=== PATIENT | male | born 1980 | race Asian ===

== ENCOUNTER 2016-07-17 22:42 | Emergency (ER) | payer SELFPAY ==
[~2016-07-17] VITALS: Ht 170.2 cm; Wt 108.5 kg
[~2016-07-17 22:42] MED LIST: ACID1TAB7 PO; AMLO5TAB4 PO; ASPI325T80 PO; ATEN25TA PO; FURO-93 PO; HYDR-3342 PO; HYDR25TA6 PO; LISI-170 PO; LOSA50TA2 PO; METF500T PO; METF500T3 PO; METO-93 PO; METO-99 PO; POTA20TA14 PO; PRED10TA PO; VANC1VIA3 PO; VANC250C2 PO; hydrochlorothiazide
[2016-07-18] MEDS ORDERED: hydrALAzine 20 MG/ML, 1ML IV ONE
[2016-07-18] MEDS ORDERED: ASPIRIN 81 MG TABLET CHEW PO ONE
[2016-07-18] MEDS ORDERED: SODIUM CHLORIDE FLUSH 10ML SYR IVF ONE
[2016-07-18] MEDS ORDERED: ASPIRIN 81 MG TABLET CHEW ONE (00:09)
[2016-07-18] MEDS ORDERED: hydrALAzine 20 MG/ML, 1ML ONE (00:09)
[2016-07-18] MEDS ORDERED: LABETALOL 20 MG/4 ML ONE (00:21)
[2016-07-18] MEDS ORDERED: DIPHENHYDRAMINE 50 MG/ML, 1ML ONE (00:21)
[2016-07-18] MEDS ORDERED: DIPHENHYDRAMINE 50 MG/ML, 1ML IVPush ONE (00:30)
[2016-07-18] MEDS ORDERED: LABETALOL 5MG/ML, 20ML IVPush ONE (00:30)
[2016-07-18 00:36] LABS: ASPARTATE AMINO TRANSFERASE 25 U/L (15-37); BLOOD UREA NITROGEN 20 mg/dL (7-18)
[2016-07-18 00:50] LABS: PATH.CAST-FLAG NOT PRESENT; SPERM-FLAG NOT PRESENT; SRC-FLAG NOT PRESENT; XTAL-FLAG NOT PRESENT; YLC-FLAG NOT PRESENT
[2016-07-18 02:49] VITALS: BP 149/102
== END 2016-07-18 02:50 | disposition home or self-care (01) ==
LOC: EDSEX 22:42 → ED 07-18 00:09
DX: J15.9 Unspecified bacterial pneumonia (principal); I10 Essential (primary) hypertension; E11.9 Type 2 diabetes mellitus without complications; E66.9 Obesity, unspecified; E78.5 Hyperlipidemia, unspecified; F17.210 Nicotine dependence, cigarettes, uncomplicated; Z91.19 Patient's noncompliance with other medical treatment and regimen
CPT/HCPCS: 36415; 71010; 80053; 81001; 83880; 84484; 85025; 85610; 85730; 93005; 96374; 96375; 99285; J1200

== ENCOUNTER 2016-12-20 02:42 | Emergency (ER) | payer MEDICAID, MEDICARE ==
[~2016-12-20] VITALS: Ht 170.2 cm; Wt 125.1 kg
[2016-12-20] MEDS ORDERED: NITROGLYCERIN OINT 2%, 1GM TP ONE ×2 (03:23→03:30)
[2016-12-20 03:33] VITALS: BP 166/115
[2016-12-20 03:38] LABS: ASPARTATE AMINO TRANSFERASE 20 U/L (15-37); BLOOD UREA NITROGEN 14 mg/dL (7-18)
[2016-12-20 03:45] LABS: HEMATOCRIT 48.4 % (34.6-47.8); HEMOGLOBIN 15.4 g/dL (11.7-16.4); WHITE BLOOD COUNT 8.5 x10^3/uL (3.4-10)
[2016-12-20 03:50] LABS: DIFF TOTAL CELLS COUNTED 100 CELL DIFF
[2016-12-20 03:59] LABS: ANISOCYTOSIS 1+; POLYCHROMASIA 1+; VERIFY COUNTS? YES
[2016-12-20 04:00] LABS: OVALOCYTES 1+
== END 2016-12-20 05:03 | disposition home or self-care (01) ==
LOC: ED 04:50
DX: R55 Syncope and collapse (principal); E11.65 Type 2 diabetes mellitus with hyperglycemia; I10 Essential (primary) hypertension; E78.5 Hyperlipidemia, unspecified; J44.9 Chronic obstructive pulmonary disease, unspecified; G51.0 Bell's palsy; Z88.0 Allergy status to penicillin; Z87.891 Personal history of nicotine dependence; Z90.49 Acquired absence of other specified parts of digestive tract; Z86.73 Personal history of transient ischemic attack (TIA), and cerebral infarction without residual deficits
CPT/HCPCS: 36415; 71010; 80053; 81001; 83690; 85025; 87086; 93005; 99285

== ENCOUNTER 2016-12-20 06:56 | Emergency (ER) | payer MEDICAID ==
[~2016-12-20] VITALS: Ht 167.6 cm; Wt 124.4 kg
[2016-12-20 06:58] VITALS: BP 186/126
== END 2016-12-20 08:05 | disposition home or self-care (01) ==
LOC: ED 08:00
DX: R55 Syncope and collapse (principal); I10 Essential (primary) hypertension; E11.9 Type 2 diabetes mellitus without complications; E78.5 Hyperlipidemia, unspecified; J44.9 Chronic obstructive pulmonary disease, unspecified; G51.0 Bell's palsy; Z90.49 Acquired absence of other specified parts of digestive tract
CPT/HCPCS: 99281

== ENCOUNTER 2017-03-03 22:46 | Emergency (ER) | payer MEDICAID, MEDICARE ==
[~2017-03-03] VITALS: Ht 157.5 cm; Wt 110.0 kg
[2017-03-04] MEDS ORDERED: ASPIRIN 81 MG TABLET CHEW PO ONE
[2017-03-04] MEDS ORDERED: SODIUM CHLORIDE 0.9% 1,000ML IVBOLUS ONE
[2017-03-04] MEDS ORDERED: SODIUM CHLORIDE FLUSH 10ML SYR IVF ONE
[2017-03-04] MEDS ORDERED: ONDANSETRON 2MG/ML, 2ML IVPush ONE
[2017-03-04] MEDS ORDERED: hydrALAzine 20 MG/ML, 1ML IV ONE
[2017-03-04 01:13] LABS: RAPID INFLUENZA A Negative (Negative); RAPID INFLUENZA B Negative (Negative)
[2017-03-04] MEDS ORDERED: ONDANSETRON 2MG/ML, 2ML ONE (01:17)
[2017-03-04] MEDS ORDERED: ASPIRIN 81 MG TABLET CHEW ONE (01:18)
[2017-03-04 01:24] LABS: HEMOGLOBIN 14.8 g/dL (11.7-16.4); WHITE BLOOD COUNT 10.2 x10^3/uL (3.4-10)
[2017-03-04 01:33] LABS: BLOOD UREA NITROGEN 24 mg/dL (7-18)
[2017-03-04 01:35] LABS: ASPARTATE AMINO TRANSFERASE 27 U/L (15-37)
[2017-03-04 01:39] LABS: IS PT STATUS REG ER OR PRE ER? YES
[2017-03-04 02:27] VITALS: BP 142/86
== END 2017-03-04 02:32 | disposition home or self-care (01) ==
LOC: ED 23:56
DX: R55 Syncope and collapse (principal); I10 Essential (primary) hypertension; R11.0 Nausea; E78.5 Hyperlipidemia, unspecified; I50.9 Heart failure, unspecified; E11.9 Type 2 diabetes mellitus without complications; J44.9 Chronic obstructive pulmonary disease, unspecified; E66.9 Obesity, unspecified; Z79.82 Long term (current) use of aspirin; Z90.49 Acquired absence of other specified parts of digestive tract
CPT/HCPCS: 36415; 70450; 71020; 80053; 81001; 83690; 84484; 84703; 85025; 87400; 93005; 96361; 96374; 99285; J2405; J7030; Q0177

== ENCOUNTER 2017-04-03 08:23 | Inpatient (IN) | payer MEDICARE, MEDICAID ==
[~2017-04-03] VITALS: Ht 167.6 cm; Wt 127.3 kg
[2017-04-03] MEDS ORDERED: SODIUM CHLORIDE 0.9% 1,000ML IVBOLUS ONE (09:00)
[2017-04-03 09:25] LABS: MEAN CORPUSCULAR HEMOGLOBIN 22.5 pg (27.0-34.8); MEAN CORPUSCULAR HGB CONC 31.7 g/dL (32.4-35.8); MEAN CORPUSCULAR VOLUME 70.9 fL (80-100); MEAN PLATELET VOLUME 8.8 fL (7.4-10.4); PLATELET COUNT 243 x10^3/uL (130-400); RED BLOOD COUNT 6.87 x10^6/uL (3.82-5.3); RED CELL DISTRIBUTION WIDTH 17.1 % (9.6-15.2)
[2017-04-03 09:29] LABS: ALANINE AMINOTRANSFERASE 41 U/L (12-78); ALBUMIN 3.6 g/dL (3.4-5.0); ANION GAP 8 mmol/L (5-15); CALCIUM 8.4 mg/dL (8.5-10.1); CHLORIDE 104 mmol/L (98-107)
[2017-04-03 09:31] LABS: ALKALINE PHOSPHATASE 53 U/L (45-117); BILIRUBIN,TOTAL 1.2 mg/dL (0.2-1.0); TOTAL PROTEIN 7.6 g/dL (6.4-8.2)
[2017-04-03 09:39] LABS: MICROSCOPIC INDICATED
[2017-04-03 09:46] LABS: CLOSTRIDIUM DIFFICILE ANTIGEN POSITIVE; CLOSTRIDIUM DIFFICILE TOXIN NEGATIVE (Negative)
[2017-04-03 09:47] LABS: CULTURE INDICATED? NO
[2017-04-03 09:58] LABS: BASOPHILS # (AUTO) 0.03 x10^3/uL (0-0.1); BASOPHILS % (AUTO) 1 % (0-1); EOSINOPHILS # (AUTO) 0.29 x10^3/uL (0-0.4); EOSINOPHILS % (AUTO) 5 % (1-7); LYMPHOCYTES # (AUTO) 1.52 x10^3/uL (1-3.4); LYMPHOCYTES % (AUTO) 26 % (22-44); MD MORPH REVIEW ONLY; MONOCYTES # (AUTO) 0.67 x10^3/uL (0.2-0.8); MONOCYTES % (AUTO) 11 % (2-9); NEUTROPHILS # (AUTO) 3.32 x10^3/uL (1.8-6.8); NEUTROPHILS % (AUTO) 57 % (42-75)
[2017-04-03 09:59] LABS: ANISOCYTOSIS 1+; HYPOCHROMIA 1+; MICROCYTOSIS 1+; POLYCHROMASIA 1+
[2017-04-03] MEDS ORDERED: METOPROLOL TARTRATE 50 MG TABLET PO STA (09:59)
[2017-04-03] MEDS ORDERED: DIPHENHYDRAMINE 25 MG CAPSULE PO ONE (10:00)
[2017-04-03] MEDS ORDERED: ONDANSETRON 2MG/ML, 2ML ONE (10:00)
[2017-04-03] MEDS ORDERED: ONDANSETRON 2MG/ML, 2ML IVPush ONE (10:00)
[2017-04-03] MEDS ORDERED: LISINOPRIL 20 MG TABLET PO ONE (10:00)
[2017-04-03] MEDS ORDERED: DIPHENHYDRAMINE 25 MG CAPSULE ONE (10:01)
[2017-04-03 10:02] LABS: <PLATELET ESTIMATE> ADEQUATE; LARGE PLATELETS 1+; OVALOCYTES 1+; TARGET CELLS 1+; TEAR DROPS 1+
[2017-04-03] MEDS ORDERED: METOPROLOL TARTRATE 50 MG TABLET ONE (10:02)
[2017-04-03] MEDS ORDERED: LISINOPRIL 20 MG TABLET ONE (10:03)
[2017-04-03 10:05] LABS: BASOPHILLIC STIPPLING 1+
[2017-04-03] MEDS ORDERED: hydrALAzine 20 MG/ML, 1ML IV ONE (11:00)
[2017-04-03] MEDS ORDERED: hydrALAzine 20 MG/ML, 1ML ONE (11:16)
[2017-04-03 11:29] LABS: TROPONIN I < 0.015 ng/mL (0.000-0.045)
[2017-04-03] MEDS ORDERED: LABETALOL 5MG/ML, 20ML IVPush ONE (12:00)
[2017-04-03] MEDS ORDERED: ACETAMINOPHEN 325 MG TABLET PO PRN (13:30)
[2017-04-03] MEDS ORDERED: POLYETHYLENE GLYCOL 17 GM PACKET PO PRN (13:30)
[2017-04-03] MEDS ORDERED: DOCUSATE 100 MG CAPSULE PO PRN (13:30)
[2017-04-03] MEDS ORDERED: hydrALAzine 20 MG/ML, 1ML IVPush PRN (13:30)
[2017-04-03] MEDS ORDERED: ENALAPRILAT 1.25 MG/ML, 2ML IVPush PRN (13:30)
[2017-04-03 13:58] LABS: FREE T4 (FREE THYROXINE) 1.03 ng/dL (0.76-1.46); THYROID STIMULATING HORMONE 1.21 mIU/L (0.358-3.740)
[2017-04-03 14:04] LABS: HEMOGLOBIN A1C 7.2 % (4.2-6.3)
[2017-04-03 14:47] VITALS: BP 145/101
[2017-04-03] MEDS ORDERED: DIPHENHYDRAMINE 25 MG CAPSULE PO PRN (15:00)
[2017-04-03] MEDS: HEPARIN 5,000 UNITS/ML, 1ML SQ SCH ×2 (15:27→22:03)
[2017-04-03] MEDS: LISINOPRIL 20 MG TABLET PO SCH (15:27)
[2017-04-03] MEDS: METOPROLOL TARTRATE 100 MG TABLET PO SCH ×2 (15:27→21:59)
[2017-04-03] MEDS: OXYcodone IR 5MG TABLET PO PRN ×2 (15:28→22:03)
[2017-04-03] MEDS ORDERED: INSULIN ASPART 100 UNITS/ML, PEN SQ-INSULIN SCH (16:00)
[2017-04-03] MEDS: INSULIN LISPRO 100 UNITS/ML, PEN SQ-INSULIN SCH ×2 (16:35→21:00)
[2017-04-03 18:15] LABS: OCCULT BLOOD NEGATIVE (NEGATIVE)
[2017-04-03 18:56] LABS: CRYPTOSPORIDIUM ANTIGEN Negative (Negative)
[2017-04-03 19:23] VITALS: BP 133/94
[2017-04-03] MEDS ORDERED: PNEUMOCOCCAL 23 VACCINE IM-VACC ONE (21:30)
[2017-04-03] MEDS ORDERED: FLU VACC QS2017-18 (36MOS+) UP/PF 0.5 ML IM-VACC ONE (21:30)
[2017-04-03] MEDS: DIPHENHYDRAMINE 12.5MG/5ML, 10ML UDC PO PRN (21:59)
[2017-04-03] MEDS: ONDANSETRON 2MG/ML, 2ML IVPush PRN (22:01)
[2017-04-04 00:27] VITALS: BP 137/96
[2017-04-04] MEDS: OXYcodone IR 5MG TABLET PO PRN ×5 (02:35→18:12)
[2017-04-04] MEDS: HEPARIN 5,000 UNITS/ML, 1ML SQ SCH ×3 (06:00→21:07)
[2017-04-04 06:10] LABS: BASOPHILS % (AUTO) 1 % (0-1); EOSINOPHILS # (AUTO) 0.41 x10^3/uL (0-0.4); EOSINOPHILS % (AUTO) 4 % (1-7); LYMPHOCYTES # (AUTO) 2.63 x10^3/uL (1-3.4); LYMPHOCYTES % (AUTO) 26 % (22-44); MD NO; MEAN CORPUSCULAR HEMOGLOBIN 22.5 pg (27.0-34.8); MEAN CORPUSCULAR HGB CONC 31.5 g/dL (32.4-35.8); MEAN CORPUSCULAR VOLUME 71.4 fL (80-100); MEAN PLATELET VOLUME 8.5 fL (7.4-10.4); MONOCYTES # (AUTO) 1.23 x10^3/uL (0.2-0.8); MONOCYTES % (AUTO) 12 % (2-9); NEUTROPHILS # (AUTO) 5.78 x10^3/uL (1.8-6.8); NEUTROPHILS % (AUTO) 57 % (42-75); PLATELET COUNT 243 x10^3/uL (130-400); RED BLOOD COUNT 6.39 x10^6/uL (3.82-5.3)
[2017-04-04 06:18] LABS: ALANINE AMINOTRANSFERASE 57 U/L (12-78); ALBUMIN 3.3 g/dL (3.4-5.0); ANION GAP 5 mmol/L (5-15); CALCIUM 8.8 mg/dL (8.5-10.1); CHLORIDE 105 mmol/L (98-107); CREATININE 1.03 mg/dL (0.55-1.02)
[2017-04-04 06:21] LABS: ALKALINE PHOSPHATASE 51 U/L (45-117); BILIRUBIN,TOTAL 1.1 mg/dL (0.2-1.0); CHOL/HDL RATIO 3.4; CHOLESTEROL, TOTAL 148 mg/dL (140-239); HDL CHOL % 29 % (28-40); HDL CHOLESTEROL (DIRECT) 43 mg/dL (40-60); LDL CHOLESTEROL,CALCULATED 61 mg/dL (54-169); LDL/HDL RATIO 1.4 (0.5-3.0); TOTAL PROTEIN 7.2 g/dL (6.4-8.2); TRIGLYCERIDES 220 mg/dL (50-200); VLDL CHOLESTEROL 44 mg/dL (0-25)
[2017-04-04] MEDS: DIPHENHYDRAMINE 12.5MG/5ML, 10ML UDC PO PRN ×3 (06:24→20:24)
[2017-04-04] MEDS: INSULIN LISPRO 100 UNITS/ML, PEN SQ-INSULIN SCH ×4 (06:39→20:25)
[2017-04-04 06:45] VITALS: BP 135/106
[2017-04-04] MEDS ORDERED: PROMETHAZINE 25 MG/ML, 1ML IM PRN (08:00)
[2017-04-04 08:59] VITALS: BP 118/82
[2017-04-04] MEDS: METOPROLOL TARTRATE 100 MG TABLET PO SCH ×2 (09:00→20:25)
[2017-04-04] MEDS: LISINOPRIL 20 MG TABLET PO SCH (09:00)
[2017-04-04] MEDS: morphine SULFATE 10 MG/ML, 1ML IVPush PRN ×2 (11:40→20:25)
[2017-04-04 12:15] VITALS: BP 110/77
[2017-04-04] MEDS ORDERED: ERGOCALCIFEROL 50,000 UNIT CAPSULE PO SCH (16:30)
[2017-04-04] MEDS ORDERED: MAGNESIUM SULFATE PMX 2GM/50ML 50 ML IV ONE (16:30)
[2017-04-04] MEDS: metroNIDAZOLE 500 MG TABLET PO SCH (16:38)
[2017-04-04 20:10] VITALS: BP 138/85
[2017-04-04] MEDS ORDERED: MORPHINE SULFATE 4 MG/ML, 1ML ONE (20:22)
[2017-04-04] MEDS: ONDANSETRON 2MG/ML, 2ML IVPush PRN (22:17)
[2017-04-05] MEDS: OXYcodone IR 5MG TABLET PO PRN ×3 (00:01→10:55)
[2017-04-05] MEDS: metroNIDAZOLE 500 MG TABLET PO SCH ×2 (00:02→08:32)
[2017-04-05 03:32] VITALS: BP 115/80
[2017-04-05 05:44] LABS: CHLORIDE 104 mmol/L (98-107)
[2017-04-05 05:49] LABS: ANION GAP 7 mmol/L (5-15); CALCIUM 8.7 mg/dL (8.5-10.1); CREATININE 1.41 mg/dL (0.55-1.02)
[2017-04-05] MEDS: HEPARIN 5,000 UNITS/ML, 1ML SQ SCH ×2 (06:00→13:49)
[2017-04-05 06:23] LABS: MEAN CORPUSCULAR HEMOGLOBIN 22.9 pg (27.0-34.8); MEAN CORPUSCULAR HGB CONC 31.6 g/dL (32.4-35.8); MEAN CORPUSCULAR VOLUME 72.5 fL (80-100); MEAN PLATELET VOLUME 8.7 fL (7.4-10.4); PLATELET COUNT 243 x10^3/uL (130-400); RED BLOOD COUNT 6.82 x10^6/uL (3.82-5.3); RED CELL DISTRIBUTION WIDTH 17.2 % (9.6-15.2)
[2017-04-05] MEDS: INSULIN LISPRO 100 UNITS/ML, PEN SQ-INSULIN SCH ×2 (06:34→11:02)
[2017-04-05 06:38] LABS: MD YES
[2017-04-05] MEDS: DIPHENHYDRAMINE 12.5MG/5ML, 10ML UDC PO PRN (06:39)
[2017-04-05 06:40] LABS: ANISOCYTOSIS 1+; BAND#(MANUAL) 0.26 x10^3/uL; BANDS%(MANUAL) 2 % (0-7); EOS#(MANUAL) 0.13 x10^3/uL (0.0-0.4); EOS% (MANUAL) 1 % (1-7); HYPOCHROMIA 1+; LYMPH#(MANUAL) 2.71 x10^3/uL (1-3.4); LYMPHS% (MANUAL) 21 % (22-44); MICROCYTOSIS 1+; MONOS#(MANUAL) 0.77 x10^3/uL (0.3-2.7); MONOS% (MANUAL) 6 % (2-9); NRBC % (MANUAL) 7 % (0-1); POLYCHROMASIA 1+; SEG#(MANUAL) 9.03 x10^3/uL (1.8-6.8); SEGS% (MANUAL) 70 % (42-75); TARGET CELLS 1+
[2017-04-05 06:41] LABS: <PLATELET ESTIMATE> ADEQUATE; LARGE PLATELETS 1+
[2017-04-05 07:57] VITALS: BP 135/90
[2017-04-05] MEDS: LISINOPRIL 20 MG TABLET PO SCH (08:32)
[2017-04-05] MEDS: METOPROLOL TARTRATE 100 MG TABLET PO SCH (08:32)
[2017-04-05] MEDS: ONDANSETRON 2MG/ML, 2ML IVPush PRN (12:51)
[2017-04-05] MEDS ORDERED: METR500T PO (13:11)
[2017-04-05] MEDS ORDERED: SPIR25TA PO (13:11)
[2017-04-05] MEDS ORDERED: ERGO500017 PO (13:11)
[2017-04-05] MEDS ORDERED: METF500T PO (13:11)
[2017-04-05] MEDS ORDERED: METO-99 PO (13:11)
[2017-04-05 13:26] VITALS: BP 113/80
== END 2017-04-05 15:34 | disposition home or self-care (01) | DRG 372 ==
LOC: ED 09:08 → EDIP 13:29 → 4NOR 14:34
PROVIDERS: ADMIT Internal Medicine; ATTEND Internal Medicine
DX: A04.72 Enterocolitis due to Clostridium difficile, not specified as recurrent (principal); Z68.42 Body mass index [BMI] 45.0-49.9, adult; I11.0 Hypertensive heart disease with heart failure; E11.65 Type 2 diabetes mellitus with hyperglycemia; I50.9 Heart failure, unspecified; I16.9 Hypertensive crisis, unspecified; E55.9 Vitamin D deficiency, unspecified; Z23 Encounter for immunization; E66.01 Morbid (severe) obesity due to excess calories; E78.5 Hyperlipidemia, unspecified; F17.210 Nicotine dependence, cigarettes, uncomplicated; F41.1 Generalized anxiety disorder; J44.9 Chronic obstructive pulmonary disease, unspecified; N28.9 Disorder of kidney and ureter, unspecified; Z82.3 Family history of stroke; Z83.3 Family history of diabetes mellitus; Z86.73 Personal history of transient ischemic attack (TIA), and cerebral infarction without residual deficits; Z91.14 Patient's other noncompliance with medication regimen; Z91.19 Patient's noncompliance with other medical treatment and regimen; Z90.49 Acquired absence of other specified parts of digestive tract; Z88.6 Allergy status to analgesic agent; Z88.1 Allergy status to other antibiotic agents; Z88.5 Allergy status to narcotic agent; Z88.0 Allergy status to penicillin
CPT/HCPCS: 36415; 71046; 80048; 80053; 80061; 81001; 82272; 82306; 82533; 82607; 82728; 82962; 83036; 83540; 83550; 83735; 83880; 84439; 84443; 84466; 84484; 85025; 85379; 87046; 87324; 87328; 87329; 87493; 87899; 89055; 90686; 90732; 93005; J1644; J2405; J2550; J0360; J1815; J2270; J3475; J7030; Q0163

== ENCOUNTER 2017-05-15 19:29 | Emergency (ER) | payer MEDICARE, MEDICAID ==
[~2017-05-15] VITALS: Ht 167.6 cm; Wt 118.0 kg
[~2017-05-15 19:29] MED LIST changes: +ERGO500017 PO; +METR500T PO; +SPIR25TA PO
[2017-05-15 19:31] VITALS: BP 219/138
[2017-05-15] MEDS ORDERED: PROMETHAZINE 25 MG/ML, 1ML ONE (19:50)
[2017-05-15 19:51] LABS: BASOPHILS # (AUTO) 0.03 x10^3/uL (0-0.1); BASOPHILS % (AUTO) 0 % (0-1); EOSINOPHILS # (AUTO) 0.33 x10^3/uL (0-0.4); EOSINOPHILS % (AUTO) 4 % (1-7); LYMPHOCYTES # (AUTO) 2.08 x10^3/uL (1-3.4); LYMPHOCYTES % (AUTO) 23 % (22-44); MD NO; MEAN CORPUSCULAR HEMOGLOBIN 22.5 pg (27.0-34.8); MEAN CORPUSCULAR HGB CONC 31.9 g/dL (32.4-35.8); MEAN CORPUSCULAR VOLUME 70.5 fL (80-100); MEAN PLATELET VOLUME 9.1 fL (7.4-10.4); MONOCYTES % (AUTO) 9 % (2-9); NEUTROPHILS # (AUTO) 5.89 x10^3/uL (1.8-6.8); NEUTROPHILS % (AUTO) 65 % (42-75); PLATELET COUNT 261 x10^3/uL (130-400); RED BLOOD COUNT 6.72 x10^6/uL (3.82-5.3); RED CELL DISTRIBUTION WIDTH 17.2 % (9.6-15.2)
[2017-05-15] MEDS ORDERED: PLEASE ENTER HEIGHT AND WEIGHT MC SCH (20:00)
[2017-05-15] MEDS ORDERED: PROMETHAZINE 25 MG/ML, 1ML IM ONE (20:00)
[2017-05-15 20:02] LABS: ALBUMIN 3.5 g/dL (3.4-5.0); ANION GAP 7 mmol/L (5-15); CALCIUM 8.9 mg/dL (8.5-10.1); CHLORIDE 105 mmol/L (98-107); CREATININE 0.94 mg/dL (0.55-1.02)
[2017-05-15] MEDS ORDERED: LISINOPRIL 20 MG TABLET PO ONE (20:30)
[2017-05-15] MEDS ORDERED: LISINOPRIL 20 MG TABLET ONE (21:14)
== END 2017-05-15 22:05 | disposition home or self-care (01) ==
LOC: ED 21:59
DX: R11.2 Nausea with vomiting, unspecified (principal); I10 Essential (primary) hypertension; J44.9 Chronic obstructive pulmonary disease, unspecified; I50.9 Heart failure, unspecified; Z86.73 Personal history of transient ischemic attack (TIA), and cerebral infarction without residual deficits; E11.9 Type 2 diabetes mellitus without complications; Z90.49 Acquired absence of other specified parts of digestive tract
CPT/HCPCS: 36415; 80048; 82040; 85025; 96372; 99284; J2550

== ENCOUNTER 2017-07-05 14:41 | Inpatient (IN) | payer MEDICARE, MEDICAID ==
[~2017-07-05] VITALS: Ht 167.6 cm; Wt 138.5 kg
[2017-07-05 15:27] LABS: BASOPHILS # (AUTO) 0.03 x10^3/uL (0-0.1); BASOPHILS % (AUTO) 0 % (0-1); EOSINOPHILS # (AUTO) 0.26 x10^3/uL (0-0.4); EOSINOPHILS % (AUTO) 3 % (1-7); LYMPHOCYTES # (AUTO) 1.85 x10^3/uL (1-3.4); LYMPHOCYTES % (AUTO) 21 % (22-44); MD NO; MEAN CORPUSCULAR HGB CONC 31.4 g/dL (32.4-35.8); MEAN PLATELET VOLUME 8.6 fL (7.4-10.4); MONOCYTES # (AUTO) 0.67 x10^3/uL (0.2-0.8); MONOCYTES % (AUTO) 8 % (2-9); NEUTROPHILS # (AUTO) 6.13 x10^3/uL (1.8-6.8); NEUTROPHILS % (AUTO) 69 % (42-75); PLATELET COUNT 274 x10^3/uL (130-400); RED BLOOD COUNT 7.67 x10^6/uL (3.82-5.3)
[2017-07-05] MEDS ORDERED: METOPROLOL 1 MG/ML, 5ML ONE ×3 (15:28→17:14)
[2017-07-05] MEDS ORDERED: PROMETHAZINE 25 MG/ML, 1ML ONE (15:28)
[2017-07-05 15:30] LABS: INTERNATIONAL NORMALIZED RATIO 1.03 (0.93-1.1); PROTHROMBIN TIME 10.6 Seconds (9.6-11.5)
[2017-07-05] MEDS ORDERED: PROMETHAZINE 25 MG/ML, 1ML IM ONE (15:30)
[2017-07-05] MEDS ORDERED: METOPROLOL 1 MG/ML, 5ML IVPush ONE ×3 (15:30→17:30)
[2017-07-05] MEDS ORDERED: OMNIPAQUE 350 MG/ML, 100ML BOTTLE ONE (16:43)
[2017-07-05] MEDS ORDERED: DIPHENHYDRAMINE 50 MG/ML, 1ML IVPush ONE (17:00)
[2017-07-05] MEDS ORDERED: DIPHENHYDRAMINE 50 MG/ML, 1ML ONE (17:11)
[2017-07-05] MEDS ORDERED: SODIUM CHLORIDE FLUSH 10ML SYR IVF PRN (17:30)
[2017-07-05 18:39] VITALS: BP 165/128
[2017-07-05] MEDS ORDERED: ENOXAPARIN 40 MG/0.4 ML SQ SCH (19:00)
[2017-07-05] MEDS ORDERED: DOCUSATE 100 MG CAPSULE PO PRN (19:00)
[2017-07-05 20:03] VITALS: BP 165/120
[2017-07-05] MEDS: LABETALOL 5MG/ML, 20ML IVPush PRN (20:36)
[2017-07-05 21:48] LABS: CLOSTRIDIUM DIFFICILE ANTIGEN NEGATIVE; CLOSTRIDIUM DIFFICILE TOXIN NEGATIVE (Negative)
[2017-07-05] MEDS: TEMAZEPAM 15 MG CAPSULE PO PRN (21:56)
[2017-07-05] MEDS: METOPROLOL TARTRATE 50 MG TABLET PO SCH (21:56)
[2017-07-06 02:04] VITALS: BP 147/103
[2017-07-06] MEDS: LABETALOL 5MG/ML, 20ML IVPush PRN (02:17)
[2017-07-06] MEDS: DIPHENHYDRAMINE 50 MG CAPSULE PO PRN ×2 (06:22→17:11)
[2017-07-06] MEDS: ACETAMINOPHEN 325 MG TABLET PO PRN ×2 (06:22→17:11)
[2017-07-06] MEDS: INSULIN LISPRO 100 UNITS/ML, PEN SQ-INSULIN SCH ×4 (07:00→20:28)
[2017-07-06 07:38] VITALS: BP 141/103
[2017-07-06] MEDS: HEPARIN 5,000 UNITS/ML, 1ML SQ SCH ×3 (08:30→20:28)
[2017-07-06] MEDS: SPIRONOLACTONE 25 MG TABLET PO SCH (08:54)
[2017-07-06] MEDS: ISOSORBIDE DINITRATE 10 MG TABLET PO SCH ×3 (08:54→20:33)
[2017-07-06] MEDS: METOPROLOL TARTRATE 50 MG TABLET PO SCH ×2 (08:54→20:33)
[2017-07-06 14:20] VITALS: BP 139/95
[2017-07-06] MEDS: LACTOBACILLUS CHEW TABLET PO SCH ×2 (16:52→20:33)
[2017-07-06 19:25] VITALS: BP 140/97
[2017-07-06 20:05] LABS: MICROSCOPIC INDICATED
[2017-07-06 20:16] LABS: CULTURE INDICATED? NO
[2017-07-06] MEDS: TEMAZEPAM 15 MG CAPSULE PO PRN (20:33)
[2017-07-07] MEDS: HEPARIN 5,000 UNITS/ML, 1ML SQ SCH ×3 (01:43→21:00)
[2017-07-07 02:14] VITALS: BP 135/85
[2017-07-07] MEDS: INSULIN LISPRO 100 UNITS/ML, PEN SQ-INSULIN SCH ×4 (07:00→21:00)
[2017-07-07 08:08] VITALS: BP 139/85
[2017-07-07] MEDS: LACTOBACILLUS CHEW TABLET PO SCH ×3 (09:00→22:38)
[2017-07-07] MEDS: METOPROLOL TARTRATE 50 MG TABLET PO SCH ×2 (09:01→22:37)
[2017-07-07] MEDS: CLOPIDOGREL 75 MG TABLET PO SCH (09:01)
[2017-07-07] MEDS: SPIRONOLACTONE 25 MG TABLET PO SCH (09:01)
[2017-07-07] MEDS: ISOSORBIDE DINITRATE 10 MG TABLET PO SCH ×3 (09:01→22:36)
[2017-07-07] MEDS: ACETAMINOPHEN 325 MG TABLET PO PRN (12:52)
[2017-07-07 15:13] VITALS: BP 145/89
[2017-07-07 20:03] VITALS: BP 148/98
[2017-07-07] MEDS: TEMAZEPAM 15 MG CAPSULE PO PRN (22:37)
[2017-07-08] MEDS: TEMAZEPAM 15 MG CAPSULE PO PRN (00:28)
[2017-07-08 03:48] VITALS: BP 146/100
[2017-07-08] MEDS: HEPARIN 5,000 UNITS/ML, 1ML SQ SCH ×2 (05:00→13:00)
[2017-07-08 07:10] VITALS: BP 138/96
[2017-07-08] MEDS: CLOPIDOGREL 75 MG TABLET PO SCH (08:22)
[2017-07-08] MEDS: ISOSORBIDE DINITRATE 10 MG TABLET PO SCH (08:23)
[2017-07-08] MEDS: SPIRONOLACTONE 25 MG TABLET PO SCH (08:23)
[2017-07-08] MEDS: LACTOBACILLUS CHEW TABLET PO SCH (08:23)
[2017-07-08] MEDS: INSULIN LISPRO 100 UNITS/ML, PEN SQ-INSULIN SCH ×2 (08:29→11:00)
[2017-07-08] MEDS: ACETAMINOPHEN 325 MG TABLET PO PRN (09:39)
[2017-07-08 10:15] VITALS: BP 167/117
[2017-07-08] MEDS ORDERED: ONDANSETRON ODT 4 MG PO PRN (10:30)
[2017-07-08] MEDS ORDERED: ONDANSETRON 2MG/ML, 2ML IVPush PRN (10:30)
[2017-07-08] MEDS: LABETALOL 5MG/ML, 20ML IVPush PRN (10:32)
[2017-07-08] MEDS ORDERED: INSU100I11 SQ-INSULIN (11:16)
[2017-07-08] MEDS ORDERED: ACID1TAB7 PO (11:16)
[2017-07-08] MEDS ORDERED: ISOS10TA2 PO (11:16)
[2017-07-08] MEDS ORDERED: CARV12.543 PO (11:16)
[2017-07-08] MEDS ORDERED: HYDR-3342 PO (11:16)
[2017-07-08] MEDS ORDERED: CARVEDILOL 12.5 MG TABLET PO SCH (18:00)
== END 2017-07-08 13:30 | DRG 92 ==
LOC: ED 15:54 → EDIP 17:12 → 4WST 18:24
PROVIDERS: ADMIT Emergency Medicine; ATTEND Emergency Medicine
DX: R27.0 Ataxia, unspecified (principal); I16.9 Hypertensive crisis, unspecified; E87.2 Acidosis; I11.0 Hypertensive heart disease with heart failure; E66.01 Morbid (severe) obesity due to excess calories; R13.10 Dysphagia, unspecified; Z68.42 Body mass index [BMI] 45.0-49.9, adult; N04.8 Nephrotic syndrome with other morphologic changes; E11.9 Type 2 diabetes mellitus without complications; F41.1 Generalized anxiety disorder; G47.30 Sleep apnea, unspecified; G51.0 Bell's palsy; J44.9 Chronic obstructive pulmonary disease, unspecified; M79.669 Pain in unspecified lower leg; R00.0 Tachycardia, unspecified; Z79.899 Other long term (current) drug therapy; Z82.3 Family history of stroke; Z82.49 Family history of ischemic heart disease and other diseases of the circulatory system; Z83.3 Family history of diabetes mellitus; Z86.73 Personal history of transient ischemic attack (TIA), and cerebral infarction without residual deficits; Z87.891 Personal history of nicotine dependence; Z91.14 Patient's other noncompliance with medication regimen; Z87.01 Personal history of pneumonia (recurrent); Z88.0 Allergy status to penicillin; Z88.1 Allergy status to other antibiotic agents; Z90.49 Acquired absence of other specified parts of digestive tract
CPT/HCPCS: 36415; 70450; 70496; 70498; 70551; 71045; 80047; 81001; 82962; 83605; 83880; 85025; 85610; 85730; 87324; 89055; 93005; 96372; 96374; 96375; 96376; J2550; Q0162; Q9967; J1200; J1815

== ENCOUNTER 2017-12-16 01:15 | Inpatient (IN) | payer MEDICARE, MEDICAID ==
[~2017-12-16] VITALS: Ht 167.6 cm; Wt 170.2 kg
[~2017-12-16 01:15] MED LIST changes: +CARV12.543 PO; +INSU100I11 SQ-INSULIN; +ISOS10TA2 PO
[2017-12-16] MEDS ORDERED: LISI-170 PO (01:59)
[2017-12-16] MEDS ORDERED: hydrALAzine 20 MG/ML, 1ML IV ONE (02:00)
[2017-12-16] MEDS ORDERED: hydrALAzine 20 MG/ML, 1ML ONE (02:03)
[2017-12-16] MEDS ORDERED: OMNIPAQUE 350 MG/ML, 100ML BOTTLE ONE (02:06)
[2017-12-16] MEDS ORDERED: DIPHENHYDRAMINE 50 MG/ML, 1ML ONE (02:09)
[2017-12-16 02:14] LABS: BASOPHILS # (AUTO) 0.16 x10^3/uL (0-0.1); BASOPHILS % (AUTO) 2 % (0-1); EOSINOPHILS % (AUTO) 3 % (1-7); LYMPHOCYTES # (AUTO) 2.41 x10^3/uL (1-3.4); LYMPHOCYTES % (AUTO) 22 % (22-44); MD NO; MEAN CORPUSCULAR HEMOGLOBIN 22.4 pg (27.0-34.8); MEAN CORPUSCULAR HGB CONC 31.4 g/dL (32.4-35.8); MEAN CORPUSCULAR VOLUME 71.4 fL (80-100); MEAN PLATELET VOLUME 8.8 fL (7.4-10.4); MONOCYTES # (AUTO) 1.18 x10^3/uL (0.2-0.8); MONOCYTES % (AUTO) 11 % (2-9); NEUTROPHILS # (AUTO) 6.77 x10^3/uL (1.8-6.8); NEUTROPHILS % (AUTO) 63 % (42-75); PLATELET COUNT 278 x10^3/uL (130-400); RED BLOOD COUNT 6.41 x10^6/uL (3.82-5.3); RED CELL DISTRIBUTION WIDTH 16.9 % (9.6-15.2)
[2017-12-16 02:21] LABS: INTERNATIONAL NORMALIZED RATIO 1.06 (0.93-1.1); PROTHROMBIN TIME 10.9 Seconds (9.6-11.5)
[2017-12-16 02:25] LABS: TROPONIN I 0.055 ng/mL (0.000-0.045)
[2017-12-16] MEDS ORDERED: METOPROLOL 1 MG/ML, 5ML ONE ×3 (02:36→04:32)
[2017-12-16] MEDS: METOPROLOL 1 MG/ML, 5ML IVPush PRN ×2 (02:37→03:11)
[2017-12-16] MEDS ORDERED: CHOL100011 PO (02:39)
[2017-12-16] MEDS ORDERED: NITROGLYCERIN/D5W PMX 250 ML ONE (03:09)
[2017-12-16] MEDS ORDERED: NITROGLYCERIN SINGLE TAB 0.4 MG SL PRN (03:30)
[2017-12-16] MEDS: NITROGLYCERIN/D5W PMX 250 ML IV PRN ×3 (03:38→05:19)
[2017-12-16 04:53] LABS: MICROSCOPIC AUTO
[2017-12-16 04:56] LABS: CULTURE INDICATED? NO
[2017-12-16] MEDS ORDERED: SODIUM CHLORIDE 0.9% 1,000 ML IV SCH (05:04)
[2017-12-16] MEDS ORDERED: POLYETHYLENE GLYCOL 17 GM PACKET PO PRN (05:30)
[2017-12-16] MEDS ORDERED: morphine SULFATE 10 MG/ML, 1ML IVPush PRN (05:30)
[2017-12-16] MEDS ORDERED: ONDANSETRON 2MG/ML, 2ML IVPush PRN (05:30)
[2017-12-16] MEDS ORDERED: hydrALAzine 20 MG/ML, 1ML IVPush PRN ×2 (05:30→09:00)
[2017-12-16] MEDS ORDERED: ZOLPIDEM 5MG TABLET PO PRN (05:30)
[2017-12-16 06:18] LABS: TROPONIN I 0.052 ng/mL (0.000-0.045)
[2017-12-16] MEDS: ACETAMINOPHEN 325 MG TABLET PO PRN ×2 (06:27→22:30)
[2017-12-16] MEDS ORDERED: ALBUTEROL SULFATE 2.5 MG/3 ML NPPB PRN (07:30)
[2017-12-16] MEDS: INSULIN LISPRO 100 UNITS/ML, PEN SQ-INSULIN SCH ×4 (07:54→22:30)
[2017-12-16] MEDS: CARVEDILOL 6.25 MG TABLET PO SCH ×2 (08:57→18:00)
[2017-12-16] MEDS: CHOLECALCIFEROL 1,000 UNIT TABLET PO SCH (08:57)
[2017-12-16] MEDS: LISINOPRIL 20 MG TABLET PO SCH ×2 (08:57→22:30)
[2017-12-16] MEDS ORDERED: LACTULOSE 10 GM/15 ML UDC PO SCH (09:00)
[2017-12-16] MEDS ORDERED: LISINOPRIL 20 MG TABLET PO SCH (09:00)
[2017-12-16] MEDS ORDERED: ENALAPRILAT 1.25 MG/ML, 2ML IV PRN (09:00)
[2017-12-16 11:38] LABS: TROPONIN I 0.039 ng/mL (0.000-0.045)
[2017-12-16 19:57] VITALS: BP 129/71
[2017-12-17 00:35] VITALS: BP 134/67
[2017-12-17 05:25] LABS: ALBUMIN 2.9 g/dL (3.4-5.0); ANION GAP 10 mmol/L (5-15); CALCIUM 8.6 mg/dL (8.5-10.1); CHLORIDE 107 mmol/L (98-107)
[2017-12-17] MEDS: CARVEDILOL 6.25 MG TABLET PO SCH (05:30)
[2017-12-17] MEDS: ACETAMINOPHEN 325 MG TABLET PO PRN (05:31)
[2017-12-17 05:32] VITALS: BP 137/105
[2017-12-17 05:35] LABS: % IRON SATURATION 20 % (20-55); ALANINE AMINOTRANSFERASE 21 U/L (12-78); ALKALINE PHOSPHATASE 55 U/L (45-117); BILIRUBIN,TOTAL 1.3 mg/dL (0.2-1.0); CREATININE 0.69 mg/dL (0.55-1.02); IRON LEVEL 66 mcg/dL (50-170); TOTAL IRON BINDING CAPACITY 330 mcg/dL (250-450); TOTAL PROTEIN 6.8 g/dL (6.4-8.2)
[2017-12-17 05:40] LABS: MEAN CORPUSCULAR HEMOGLOBIN 22.8 pg (27.0-34.8); MEAN CORPUSCULAR HGB CONC 31.4 g/dL (32.4-35.8); MEAN CORPUSCULAR VOLUME 72.8 fL (80-100); PLATELET COUNT 240 x10^3/uL (130-400); RED BLOOD COUNT 6.25 x10^6/uL (3.82-5.3); RED CELL DISTRIBUTION WIDTH 16.5 % (9.6-15.2)
[2017-12-17 06:29] LABS: BASOPHILS # (AUTO) 0.05 x10^3/uL (0-0.1); BASOPHILS % (AUTO) 1 % (0-1); EOSINOPHILS # (AUTO) 0.28 x10^3/uL (0-0.4); EOSINOPHILS % (AUTO) 4 % (1-7); LYMPHOCYTES # (AUTO) 2.44 x10^3/uL (1-3.4); LYMPHOCYTES % (AUTO) 31 % (22-44); MD SCAN; MONOCYTES # (AUTO) 0.73 x10^3/uL (0.2-0.8); MONOCYTES % (AUTO) 9 % (2-9); NEUTROPHILS # (AUTO) 4.38 x10^3/uL (1.8-6.8); NEUTROPHILS % (AUTO) 56 % (42-75)
[2017-12-17] MEDS: INSULIN LISPRO 100 UNITS/ML, PEN SQ-INSULIN SCH ×2 (07:00→12:35)
[2017-12-17 08:34] VITALS: BP 146/105
[2017-12-17] MEDS: CHOLECALCIFEROL 1,000 UNIT TABLET PO SCH (08:51)
[2017-12-17] MEDS: LISINOPRIL 20 MG TABLET PO SCH (08:54)
[2017-12-17 10:20] VITALS: BP 138/84
[2017-12-17 12:43] VITALS: BP_SYST 144; BP_SYST 146; BP_DIAS 74; BP_DIAS 87
== END 2017-12-17 16:04 | disposition home or self-care (01) | DRG 280 ==
LOC: ED 02:18 → EDIP 04:20 → CCU 06:00 → 4WST 16:22
PROVIDERS: ADMIT Hospitalist; ATTEND Hospitalist
DX: I21.9 Acute myocardial infarction, unspecified (principal); J96.01 Acute respiratory failure with hypoxia; I50.31 Acute diastolic (congestive) heart failure; I16.1 Hypertensive emergency; Z68.41 Body mass index [BMI] 40.0-44.9, adult; E66.2 Morbid (severe) obesity with alveolar hypoventilation; J81.1 Chronic pulmonary edema; I11.0 Hypertensive heart disease with heart failure; E78.5 Hyperlipidemia, unspecified; J44.9 Chronic obstructive pulmonary disease, unspecified; E11.9 Type 2 diabetes mellitus without complications; F17.200 Nicotine dependence, unspecified, uncomplicated; G51.0 Bell's palsy; R47.81 Slurred speech; Z79.4 Long term (current) use of insulin; Z82.49 Family history of ischemic heart disease and other diseases of the circulatory system; Z83.3 Family history of diabetes mellitus; Z84.1 Family history of disorders of kidney and ureter; Z86.14 Personal history of Methicillin resistant Staphylococcus aureus infection; Z86.79 Personal history of other diseases of the circulatory system; Z91.14 Patient's other noncompliance with medication regimen; Z88.6 Allergy status to analgesic agent; Z88.1 Allergy status to other antibiotic agents; Z88.0 Allergy status to penicillin; Z88.8 Allergy status to other drugs, medicaments and biological substances; Z86.73 Personal history of transient ischemic attack (TIA), and cerebral infarction without residual deficits
CPT/HCPCS: 36415; 70450; 70496; 70498; 71045; 80047; 80053; 81001; 82728; 82962; 83540; 83550; 83735; 83880; 84100; 84443; 84484; 85025; 85610; 85730; 87081; 93005; 96374; 96375; 96376; 99285; C8929; G0378; Q9957; Q9967; J0360; J1815; J7030

== ENCOUNTER 2018-02-01 18:28 | Emergency (ER) | payer MEDICARE, MEDICAID ==
[~2018-02-01] VITALS: Ht 167.6 cm; Wt 124.0 kg
[~2018-02-01 18:28] MED LIST changes: +CHOL100011 PO
[2018-02-01] MEDS ORDERED: SODIUM CHLORIDE FLUSH 10ML SYR IVF ONE ×2 (19:00→19:30)
[2018-02-01] MEDS ORDERED: NITROGLYCERIN OINT 2%, 1GM TP ONE ×2 (19:26→19:30)
[2018-02-01 19:29] VITALS: BP 170/98
[2018-02-01 19:29] LABS: MEAN CORPUSCULAR HEMOGLOBIN 22.2 pg (27.0-34.8); MEAN CORPUSCULAR HGB CONC 30.8 g/dL (32.4-35.8); MEAN CORPUSCULAR VOLUME 72.2 fL (80-100); MEAN PLATELET VOLUME 9.1 fL (7.4-10.4); PLATELET COUNT 334 x10^3/uL (130-400); RED BLOOD COUNT 7.57 x10^6/uL (3.82-5.3); RED CELL DISTRIBUTION WIDTH 16.3 % (9.6-15.2)
[2018-02-01 19:35] LABS: INTERNATIONAL NORMALIZED RATIO 1.08 (0.93-1.1); PROTHROMBIN TIME 11.4 Seconds (9.6-11.5)
[2018-02-01 19:37] LABS: ALANINE AMINOTRANSFERASE 29 U/L (12-78); ALBUMIN 3.3 g/dL (3.4-5.0); ANION GAP 7 mmol/L (5-15); CALCIUM 9.6 mg/dL (8.5-10.1); CHLORIDE 107 mmol/L (98-107); CREATININE 1.05 mg/dL (0.55-1.02)
[2018-02-01 19:41] LABS: ALKALINE PHOSPHATASE 63 U/L (45-117); BILIRUBIN,TOTAL 1.3 mg/dL (0.2-1.0); TOTAL PROTEIN 7.8 g/dL (6.4-8.2); TROPONIN I 0.032 ng/mL (0.000-0.045)
[2018-02-01 20:16] LABS: BASOPHILS # (AUTO) 0.04 x10^3/uL (0-0.1); BASOPHILS % (AUTO) 0 % (0-1); EOSINOPHILS # (AUTO) 0.16 x10^3/uL (0-0.4); EOSINOPHILS % (AUTO) 2 % (1-7); LYMPHOCYTES # (AUTO) 1.12 x10^3/uL (1-3.4); LYMPHOCYTES % (AUTO) 13 % (22-44); MD SCAN; MONOCYTES # (AUTO) 0.59 x10^3/uL (0.2-0.8); MONOCYTES % (AUTO) 7 % (2-9); NEUTROPHILS # (AUTO) 6.88 x10^3/uL (1.8-6.8); NEUTROPHILS % (AUTO) 78 % (42-75)
== END 2018-02-01 20:38 | disposition home or self-care (01) ==
LOC: ED 18:37
DX: B02.29 Other postherpetic nervous system involvement (principal); I11.0 Hypertensive heart disease with heart failure; I50.9 Heart failure, unspecified; I25.2 Old myocardial infarction; E78.5 Hyperlipidemia, unspecified; E11.9 Type 2 diabetes mellitus without complications; F41.1 Generalized anxiety disorder; J44.9 Chronic obstructive pulmonary disease, unspecified; Z86.73 Personal history of transient ischemic attack (TIA), and cerebral infarction without residual deficits; Z72.9 Problem related to lifestyle, unspecified; Z87.891 Personal history of nicotine dependence; Z90.49 Acquired absence of other specified parts of digestive tract; Z88.1 Allergy status to other antibiotic agents; Z88.6 Allergy status to analgesic agent; Z88.8 Allergy status to other drugs, medicaments and biological substances; Z88.0 Allergy status to penicillin
CPT/HCPCS: 36415; 70450; 71045; 80053; 83605; 83880; 84145; 84484; 85025; 85610; 85730; 87040; 93005; 99284

== ENCOUNTER 2018-04-22 17:22 | Inpatient (IN) | payer MEDICARE, MEDICAID ==
[~2018-04-22] VITALS: Ht 167.6 cm; Wt 133.2 kg
[2018-04-22] MEDS ORDERED: ONDANSETRON ODT 4 MG PO ONE (18:00)
[2018-04-22] MEDS ORDERED: DIPHENHYDRAMINE 25 MG CAPSULE PO ONE (18:00)
[2018-04-22] MEDS ORDERED: ONDANSETRON ODT 4 MG ONE (18:00)
[2018-04-22] MEDS ORDERED: DIPHENHYDRAMINE 25 MG CAPSULE ONE (18:00)
[2018-04-22 18:22] LABS: MICROSCOPIC AUTO
[2018-04-22 18:25] LABS: CULTURE INDICATED? NO
[2018-04-22 18:29] LABS: BASOPHILS # (AUTO) 0.01 x10^3/uL (0-0.1); BASOPHILS % (AUTO) 0 % (0-1); EOSINOPHILS # (AUTO) 0.24 x10^3/uL (0-0.4); EOSINOPHILS % (AUTO) 3 % (1-7); LYMPHOCYTES # (AUTO) 2.04 x10^3/uL (1-3.4); LYMPHOCYTES % (AUTO) 22 % (22-44); MD NO; MEAN CORPUSCULAR HEMOGLOBIN 22.8 pg (27.0-34.8); MEAN CORPUSCULAR HGB CONC 31.8 g/dL (32.4-35.8); MEAN CORPUSCULAR VOLUME 71.6 fL (80-100); MEAN PLATELET VOLUME 8.8 fL (7.4-10.4); MONOCYTES # (AUTO) 0.64 x10^3/uL (0.2-0.8); MONOCYTES % (AUTO) 7 % (2-9); NEUTROPHILS # (AUTO) 6.31 x10^3/uL (1.8-6.8); NEUTROPHILS % (AUTO) 68 % (42-75); PLATELET COUNT 264 x10^3/uL (130-400); RED BLOOD COUNT 6.87 x10^6/uL (3.82-5.3); RED CELL DISTRIBUTION WIDTH 16.7 % (9.6-15.2)
--- NOTE | 2018-04-22 18:30 | NUR ---
PA AWARE OF PT'S VS. PT IN BED, NAD, NO NEEDS AT THIS TIME.
[2018-04-22 18:40] LABS: ALANINE AMINOTRANSFERASE 22 U/L (12-78); ALBUMIN 3.1 g/dL (3.4-5.0); ANION GAP 8 mmol/L (5-15); CALCIUM 8.6 mg/dL (8.5-10.1); CHLORIDE 108 mmol/L (98-107); CREATININE 0.96 mg/dL (0.55-1.02)
[2018-04-22 18:45] LABS: ALKALINE PHOSPHATASE 57 U/L (45-117); BILIRUBIN,TOTAL 0.9 mg/dL (0.2-1.0); TOTAL PROTEIN 7.3 g/dL (6.4-8.2); TROPONIN I 0.039 ng/mL (0.000-0.045)
--- NOTE | 2018-04-22 19:01 | NUR ---
Bedside report from Keke GRAY. Pt reports still feeling dizzy. BP 170s/140s. Warm blankets provided per pt request. Waiting on results. Pt denies any other needs at this time.
--- NOTE | 2018-04-22 20:00 | NUR ---
Elba QUINN at bedside for re-eval. Pt medicated for hypertension.
[2018-04-22] MEDS ORDERED: LISINOPRIL 20 MG TABLET ONE (20:28)
[2018-04-22] MEDS ORDERED: LISINOPRIL 20 MG TABLET PO ONE (20:30)
--- NOTE | 2018-04-22 20:33 | NUR ---
30 minutes after 10mg hydralazine given BP still 207/144, pt still c/o dizzy/lightheadedness, pt seem unsafe to d/c. Elba QUINN notified, discussed medications, 20mg lisinopril given (this is what patient takes daily). Monitoring for another 30 minutes, will re-evaluate. Pt given snacks per request. Pt verbalized understanding of care.
--- NOTE | 2018-04-22 21:12 | NUR ---
Pt remains hypertensive 40 minutes after lisinopril, bp 200/138. Attached all monitors again, pt had nasal cannula on during earlier assessments and has removed it some time and new pulse ox placed and o2 84-87%, pt reports being an low use intermittent smoker. 2L NC placed, O2 up to 94%. Pt still c/o midsternal CP, facial tingling, dizziness. All VS and symptoms reports to Elba QUINN.
--- NOTE | 2018-04-22 21:25 | NUR ---
need iv for CTA chest.
[2018-04-22] MEDS ORDERED: SODIUM CHLORIDE FLUSH 10ML SYR IVF ONE (21:30)
[2018-04-22] MEDS ORDERED: SODIUM CHLORIDE 0.9% 1,000ML IVBOLUS ONE (21:30)
[2018-04-22 21:45] LABS: RAPID INFLUENZA A Negative (Negative); RAPID INFLUENZA B Negative (Negative)
--- NOTE | 2018-04-22 21:47 | NUR ---
2X ATTMEPT FOR PIV UNSUCCESSFUL, ABIGAIL GRAY AT BEDSIDE.
--- NOTE | 2018-04-22 22:07 | NUR ---
ABIGAIL GRAY ABLE TO PLACE IV, CT NOTIFIED.
--- NOTE | 2018-04-22 22:14 | NUR ---
PT TO CT.
--- NOTE | 2018-04-22 22:28 | NUR ---
PT BACK FROM CT, RESULTS PENDING.
[2018-04-22] MEDS ORDERED: OMNIPAQUE 350 MG/ML, 100ML BOTTLE ONE (22:29)
--- NOTE | 2018-04-22 22:40 | NUR ---
ALL RESULTS BACK, PT UP FOR RE-CHECK
--- NOTE | 2018-04-22 23:21 | NUR ---
REPORT TO FLOOR [facility] [place] REGARDING APPROPRIATE ADMISSION FLOOR, WAITING FOR RETURN CALL.
--- NOTE | 2018-04-22 23:27 | NUR ---
admitting provider at bedside.
--- NOTE | 2018-04-22 23:56 | NUR ---
REPORT TO FLOOR ISAAC FELIX, PT GOING TO [phone]
[2018-04-22] MEDS ORDERED: BUDESONIDE 0.5 MG/2 ML INHA ONE (23:58)
[2018-04-22] MEDS ORDERED: ALBUTEROL SULFATE 2.5 MG/3 ML ONE (23:58)
[2018-04-23] MEDS ORDERED: ONDANSETRON ODT 4 MG PO PRN
[2018-04-23] MEDS ORDERED: DOCUSATE 100 MG CAPSULE PO PRN
[2018-04-23] MEDS ORDERED: ACETAMINOPHEN 325 MG TABLET PO PRN
[2018-04-23] MEDS ORDERED: KETOROLAC 30 MG/1 ML IV PRN
[2018-04-23] MEDS ORDERED: NITROGLYCERIN 0.4 MG BOTTLE (25 TABS) SL PRN
[2018-04-23] MEDS ORDERED: DIPHENHYDRAMINE 50 MG CAPSULE PO PRN
[2018-04-23] MEDS: ALBUTEROL SULFATE 2.5 MG/3 ML NPPB SCH ×4 (00:02→20:39)
--- NOTE | 2018-04-23 00:02 | NUR ---
BREATHING TX IN PROGRESS.
--- NOTE | 2018-04-23 00:12 | NUR ---
PT TRANSFERED TO FLOOR WITH CHART AND ALL BELONGINGS IN STABLE CONDITION.
[2018-04-23] MEDS ORDERED: BUDESONIDE 0.5 MG/2 ML INHA INH ONE ×2 (00:30)
[2018-04-23] MEDS ORDERED: ENOXAPARIN 40 MG/0.4 ML ONE (00:30)
[2018-04-23 00:33] VITALS: BP 162/111
[2018-04-23] MEDS: ENOXAPARIN 40 MG/0.4 ML SQ SCH (00:33)
[2018-04-23 01:21] LABS: TROPONIN I 0.047 ng/mL (0.000-0.045)
[2018-04-23 05:51] LABS: ANION GAP 8 mmol/L (5-15); CALCIUM 8.6 mg/dL (8.5-10.1); CHLORIDE 106 mmol/L (98-107)
[2018-04-23 05:55] LABS: CREATININE 0.89 mg/dL (0.55-1.02); TROPONIN I 0.035 ng/mL (0.000-0.045)
[2018-04-23 05:57] LABS: MEAN CORPUSCULAR HEMOGLOBIN 22.2 pg (27.0-34.8); MEAN CORPUSCULAR HGB CONC 31.1 g/dL (32.4-35.8); MEAN CORPUSCULAR VOLUME 71.6 fL (80-100); MEAN PLATELET VOLUME 8.6 fL (7.4-10.4); PLATELET COUNT 247 x10^3/uL (130-400); RED BLOOD COUNT 6.81 x10^6/uL (3.82-5.3); RED CELL DISTRIBUTION WIDTH 16.6 % (9.6-15.2)
[2018-04-23 06:49] LABS: MD YES
[2018-04-23 06:50] LABS: BAND#(MANUAL) 0.28 x10^3/uL; BANDS%(MANUAL) 3 % (0-7); EOS#(MANUAL) 0.56 x10^3/uL (0.0-0.4); EOS% (MANUAL) 6 % (1-7); LYMPH#(MANUAL) 3.35 x10^3/uL (1-3.4); LYMPHS% (MANUAL) 36 % (22-44); MONOS#(MANUAL) 0.74 x10^3/uL (0.3-2.7); MONOS% (MANUAL) 8 % (2-9); NRBC % (MANUAL) 1 % (0-1); SEG#(MANUAL) 4.37 x10^3/uL (1.8-6.8); SEGS% (MANUAL) 47 % (42-75)
[2018-04-23 06:58] LABS: POLYCHROMASIA 1+
[2018-04-23 07:00] LABS: ANISOCYTOSIS 1+
[2018-04-23 07:01] LABS: <PLATELET ESTIMATE> ADEQUATE; <PLT MORPHOLOGY> NORMAL PLT MORPH; HYPOCHROMIA 1+
[2018-04-23 07:02] LABS: MICROCYTOSIS 2+
[2018-04-23 07:08] VITALS: BP 127/87
[2018-04-23] MEDS: BUDESONIDE 0.5 MG/2 ML INHA INH SCH ×2 (09:00→20:39)
[2018-04-23] MEDS: LIDODERM 5% PATCH TD PRN (09:21)
[2018-04-23] MEDS: LISINOPRIL 20 MG TABLET PO SCH (09:22)
[2018-04-23 09:35] VITALS: BP 138/95
[2018-04-23] MEDS ORDERED: FUROSEMIDE 20 MG/2 ML ONE (12:42)
[2018-04-23] MEDS: POTASSIUM CHLORIDE 20 MEQ TAB.ER.PRT PO SCH (12:50)
[2018-04-23] MEDS ORDERED: LORazepam 2 MG/ML, 1ML IVPush ONE (13:00)
[2018-04-23] MEDS ORDERED: FUROSEMIDE 20 MG/2 ML IV ONE (13:00)
[2018-04-23 13:22] VITALS: BP 140/96
[2018-04-23] MEDS ORDERED: DEXTROSE 4 GM TAB.CHEW PO PRN (13:30)
[2018-04-23] MEDS ORDERED: GLUCAGON 1 MG IM PRN (13:30)
[2018-04-23] MEDS ORDERED: DEXTROSE 50%, 50ML SYRINGE IVPush PRN (13:30)
[2018-04-23] MEDS: FUROSEMIDE 20 MG/2 ML IV SCH (16:09)
[2018-04-23] MEDS: INSULIN LISPRO 100 UNITS/ML, PEN SQ-INSULIN SCH ×2 (17:05→21:00)
[2018-04-23] MEDS: DIPHENHYDRAMINE 50 MG/ML, 1ML IVPush PRN (19:54)
[2018-04-23] MEDS: SODIUM CHLORIDE FLUSH 10ML SYR IVF SCH (21:00)
[2018-04-24] MEDS: ENOXAPARIN 40 MG/0.4 ML SQ SCH ×2 (00:28→23:51)
[2018-04-24 01:12] VITALS: BP 138/85
[2018-04-24] MEDS: ALBUTEROL SULFATE 2.5 MG/3 ML NPPB SCH ×4 (02:33→21:00)
[2018-04-24] MEDS: DIPHENHYDRAMINE 50 MG/ML, 1ML IVPush PRN ×4 (02:43→22:06)
[2018-04-24 06:02] LABS: CHLORIDE 105 mmol/L (98-107)
[2018-04-24 06:07] LABS: ANION GAP 5 mmol/L (5-15); CALCIUM 8.5 mg/dL (8.5-10.1); CREATININE 0.96 mg/dL (0.55-1.02)
[2018-04-24] MEDS: INSULIN LISPRO 100 UNITS/ML, PEN SQ-INSULIN SCH ×4 (07:00→19:58)
[2018-04-24 08:11] VITALS: BP 130/83
[2018-04-24] MEDS: POTASSIUM CHLORIDE 20 MEQ TAB.ER.PRT PO SCH (09:00)
[2018-04-24] MEDS: BUDESONIDE 0.5 MG/2 ML INHA INH SCH ×2 (09:00→21:00)
[2018-04-24] MEDS: LISINOPRIL 20 MG TABLET PO SCH (09:00)
[2018-04-24] MEDS: FUROSEMIDE 20 MG/2 ML IV SCH ×2 (09:05→17:30)
[2018-04-24] MEDS: SODIUM CHLORIDE FLUSH 10ML SYR IVF SCH ×2 (09:06→22:06)
[2018-04-24] MEDS ORDERED: REGADENOSON 0.4 MG/5 ML SYRINGE ONE (10:01)
[2018-04-24 13:20] VITALS: BP 142/102
[2018-04-24] MEDS ORDERED: METOPROLOL TARTRATE 50 MG TABLET ONE (14:46)
[2018-04-24] MEDS: METOPROLOL TARTRATE 50 MG TABLET PO SCH ×2 (14:48→17:29)
[2018-04-24] MEDS ORDERED: METOPROLOL TARTRATE 25 MG TABLET PO SCH (18:00)
[2018-04-24] MEDS ORDERED: hydrALAzine 20 MG/ML, 1ML IV PRN (18:00)
[2018-04-24 19:56] VITALS: BP 149/102
[2018-04-25 01:14] VITALS: BP 138/95
[2018-04-25] MEDS: ALBUTEROL SULFATE 2.5 MG/3 ML NPPB SCH (03:00)
[2018-04-25] MEDS: DIPHENHYDRAMINE 50 MG/ML, 1ML IVPush PRN (04:11)
[2018-04-25] MEDS: METOPROLOL TARTRATE 50 MG TABLET PO SCH ×2 (05:22→17:17)
[2018-04-25] MEDS: INSULIN LISPRO 100 UNITS/ML, PEN SQ-INSULIN SCH ×4 (07:00→19:49)
[2018-04-25 07:30] VITALS: BP 115/90
[2018-04-25] MEDS ORDERED: BUDESONIDE 0.5 MG/2 ML INHA INH PRN (09:30)
[2018-04-25] MEDS ORDERED: ALBUTEROL SULFATE 2.5 MG/3 ML NPPB PRN (09:30)
[2018-04-25] MEDS: LISINOPRIL 10 MG TABLET PO SCH (11:35)
[2018-04-25] MEDS: POTASSIUM CHLORIDE 20 MEQ TAB.ER.PRT PO SCH (11:35)
[2018-04-25] MEDS: SODIUM CHLORIDE FLUSH 10ML SYR IVF SCH ×2 (11:50→20:47)
[2018-04-25 12:37] VITALS: BP 136/92
[2018-04-25] MEDS ORDERED: DIPHENHYDRAMINE 50 MG CAPSULE PO PRN (13:00)
[2018-04-25] MEDS: FUROSEMIDE 40 MG TABLET PO SCH (17:18)
[2018-04-25] MEDS ORDERED: FURO40TA6 PO ×2 (18:00)
[2018-04-25] MEDS ORDERED: POTA20TA6 PO ×2 (18:00)
[2018-04-25] MEDS ORDERED: METO50TA82 PO ×2 (18:00)
[2018-04-25] MEDS ORDERED: LISI-167 PO (18:00)
[2018-04-25] MEDS ORDERED: ASPI-515 PO (18:02)
[2018-04-25] MEDS ORDERED: SIMV40TA PO (18:03)
[2018-04-25 19:18] VITALS: BP 148/76
[2018-04-25] MEDS: ENOXAPARIN 40 MG/0.4 ML SQ SCH (20:47)
[2018-04-26 00:27] VITALS: BP 135/86
[2018-04-26] MEDS: METOPROLOL TARTRATE 50 MG TABLET PO SCH (05:21)
[2018-04-26 05:38] LABS: CHOL/HDL RATIO 4.1; LDL/HDL RATIO 2.3 (0.5-3.0)
[2018-04-26] MEDS: INSULIN LISPRO 100 UNITS/ML, PEN SQ-INSULIN SCH ×4 (07:00→20:58)
[2018-04-26] MEDS: FUROSEMIDE 40 MG TABLET PO SCH (07:30)
[2018-04-26 07:40] VITALS: BP 124/85
[2018-04-26] MEDS: POTASSIUM CHLORIDE 20 MEQ TAB.ER.PRT PO SCH (09:00)
[2018-04-26] MEDS: LISINOPRIL 10 MG TABLET PO SCH (09:00)
[2018-04-26] MEDS: ASPIRIN 81 MG TABLET EC PO SCH (10:00)
[2018-04-26] MEDS: SODIUM CHLORIDE 0.9% 1,000 ML IV SCH (12:59)
[2018-04-26 14:15] VITALS: BP 136/97
[2018-04-26] MEDS ORDERED: LIDOCAINE 1%, 20ML ONE (16:54)
[2018-04-26] MEDS ORDERED: MIDAZOLAM 1 MG/ML, 2ML ONE ×2 (16:54→17:20)
[2018-04-26] MEDS ORDERED: FENTANYL PF 100 MCG/2ML ONE (16:54)
[2018-04-26] MEDS ORDERED: VERAPAMIL 2.5 MG/ML, 2ML ONE (16:54)
[2018-04-26] MEDS ORDERED: HEPARIN 1,000 UNITS/ML, 10ML ONE (17:22)
[2018-04-26] MEDS: DIPHENHYDRAMINE 50 MG/ML, 1ML IVPush PRN (18:09)
[2018-04-26] MEDS: CARVEDILOL 12.5 MG TABLET PO SCH (18:09)
[2018-04-26 18:56] VITALS: BP 136/86
[2018-04-26] MEDS: FUROSEMIDE 40 MG/4 ML IV SCH (19:45)
[2018-04-26] MEDS: ATORVASTATIN 40 MG TABLET PO SCH (20:04)
[2018-04-26] MEDS: LIDODERM 5% PATCH TD PRN (20:06)
[2018-04-26 23:57] VITALS: BP 124/80
[2018-04-27] MEDS: ENOXAPARIN 40 MG/0.4 ML SQ SCH ×2 (00:02→23:11)
[2018-04-27] MEDS: DIPHENHYDRAMINE 50 MG/ML, 1ML IVPush PRN ×3 (00:03→20:21)
[2018-04-27] MEDS: CARVEDILOL 12.5 MG TABLET PO SCH ×2 (05:21→16:40)
[2018-04-27] MEDS: ASPIRIN 81 MG TABLET EC PO SCH (05:21)
[2018-04-27 06:09] LABS: BASOPHILS # (AUTO) 0.01 x10^3/uL (0-0.1); BASOPHILS % (AUTO) 0 % (0-1); EOSINOPHILS # (AUTO) 0.31 x10^3/uL (0-0.4); EOSINOPHILS % (AUTO) 4 % (1-7); LYMPHOCYTES # (AUTO) 2.07 x10^3/uL (1-3.4); LYMPHOCYTES % (AUTO) 24 % (22-44); MD NO; MEAN CORPUSCULAR HEMOGLOBIN 22.5 pg (27.0-34.8); MEAN CORPUSCULAR HGB CONC 31.6 g/dL (32.4-35.8); MEAN CORPUSCULAR VOLUME 71.3 fL (80-100); MEAN PLATELET VOLUME 8.9 fL (7.4-10.4); MONOCYTES # (AUTO) 0.78 x10^3/uL (0.2-0.8); MONOCYTES % (AUTO) 9 % (2-9); NEUTROPHILS # (AUTO) 5.45 x10^3/uL (1.8-6.8); NEUTROPHILS % (AUTO) 63 % (42-75); PLATELET COUNT 262 x10^3/uL (130-400); RED BLOOD COUNT 7.21 x10^6/uL (3.82-5.3); RED CELL DISTRIBUTION WIDTH 16.7 % (9.6-15.2)
[2018-04-27 06:22] LABS: CHLORIDE 99 mmol/L (98-107)
[2018-04-27 06:32] LABS: ANION GAP 9 mmol/L (5-15); CALCIUM 9.3 mg/dL (8.5-10.1); CREATININE 1.03 mg/dL (0.55-1.02); TOTAL IRON BINDING CAPACITY 525 mcg/dL (250-450)
[2018-04-27 06:33] LABS: % IRON SATURATION 18 % (20-55); IRON LEVEL 93 mcg/dL (50-170)
[2018-04-27] MEDS: INSULIN LISPRO 100 UNITS/ML, PEN SQ-INSULIN SCH ×4 (07:00→20:19)
[2018-04-27 07:15] LABS: HEMOGLOBIN A1C 6.6 % (4.2-6.3)
[2018-04-27 07:59] VITALS: BP 118/72
[2018-04-27] MEDS: LISINOPRIL 20 MG TABLET PO SCH (08:01)
[2018-04-27] MEDS: POTASSIUM CHLORIDE 20 MEQ TAB.ER.PRT PO SCH (08:01)
[2018-04-27] MEDS: FUROSEMIDE 40 MG/4 ML IV SCH ×2 (08:01→16:40)
[2018-04-27] MEDS: SPIRONOLACTONE 25 MG TABLET PO SCH (08:01)
[2018-04-27] MEDS: SODIUM CHLORIDE 0.9% 1,000 ML IV SCH (08:02)
[2018-04-27 16:42] VITALS: BP 116/74
[2018-04-27 19:29] VITALS: BP 119/77
[2018-04-27] MEDS: ATORVASTATIN 40 MG TABLET PO SCH (20:13)
[2018-04-28 04:47] VITALS: BP 101/61
[2018-04-28] MEDS: ASPIRIN 81 MG TABLET EC PO SCH (05:41)
[2018-04-28] MEDS: CARVEDILOL 12.5 MG TABLET PO SCH (05:41)
[2018-04-28] MEDS: SODIUM CHLORIDE 0.9% 1,000 ML IV SCH (07:18)
[2018-04-28] MEDS: INSULIN LISPRO 100 UNITS/ML, PEN SQ-INSULIN SCH ×3 (07:57→15:26)
[2018-04-28] MEDS: POTASSIUM CHLORIDE 20 MEQ TAB.ER.PRT PO SCH (08:14)
[2018-04-28] MEDS: LISINOPRIL 20 MG TABLET PO SCH (08:14)
[2018-04-28] MEDS: FUROSEMIDE 40 MG/4 ML IV SCH (08:15)
[2018-04-28] MEDS: SPIRONOLACTONE 25 MG TABLET PO SCH (08:15)
[2018-04-28] MEDS ORDERED: POTA20TA6 PO (14:20)
[2018-04-28] MEDS ORDERED: FURO40TA6 PO (14:20)
[2018-04-28] MEDS ORDERED: SPIR25TA5 PO (16:02)
[2018-04-28] MEDS ORDERED: METO25TA91 PO (16:02)
== END 2018-04-28 16:18 | disposition home health service (06) | DRG 286 ==
LOC: ED 19:19 → EDIP 22:57 → 4WST 04-23 00:19 → 5SO 04-26 17:38
PROVIDERS: ADMIT Internal Medicine; ATTEND Internal Medicine
PROC: 4A023N8 Measurement of Cardiac Sampling and Pressure, Bilateral, Percutaneous Approach (ICD-10-PCS; principal; 2018-04-26)
PROC: B2111ZZ Fluoroscopy of Multiple Coronary Arteries using Low Osmolar Contrast (ICD-10-PCS; 2018-04-26)
PROC: B2151ZZ Fluoroscopy of Left Heart using Low Osmolar Contrast (ICD-10-PCS; 2018-04-26)
PROC: 02HQ32Z Insertion of Monitoring Device into Right Pulmonary Artery, Percutaneous Approach (ICD-10-PCS; 2018-04-26)
DX: I11.0 Hypertensive heart disease with heart failure (principal); J96.01 Acute respiratory failure with hypoxia; E46 Unspecified protein-calorie malnutrition; Z68.42 Body mass index [BMI] 45.0-49.9, adult; I50.43 Acute on chronic combined systolic (congestive) and diastolic (congestive) heart failure; I27.29 Other secondary pulmonary hypertension; B02.9 Zoster without complications; E11.9 Type 2 diabetes mellitus without complications; E66.01 Morbid (severe) obesity due to excess calories; E78.5 Hyperlipidemia, unspecified; F41.1 Generalized anxiety disorder; F64.9 Gender identity disorder, unspecified; I16.0 Hypertensive urgency; I25.5 Ischemic cardiomyopathy; G51.0 Bell's palsy; J34.1 Cyst and mucocele of nose and nasal sinus; J44.9 Chronic obstructive pulmonary disease, unspecified; Z88.6 Allergy status to analgesic agent; Z82.3 Family history of stroke; Z88.0 Allergy status to penicillin; Z88.8 Allergy status to other drugs, medicaments and biological substances; I25.2 Old myocardial infarction; Z82.49 Family history of ischemic heart disease and other diseases of the circulatory system; Z83.3 Family history of diabetes mellitus; Z86.73 Personal history of transient ischemic attack (TIA), and cerebral infarction without residual deficits; Z87.891 Personal history of nicotine dependence; Z91.14 Patient's other noncompliance with medication regimen; Z90.49 Acquired absence of other specified parts of digestive tract
CPT/HCPCS: 36415; 70553; 71045; 71275; 78452; 80048; 80053; 80061; 81001; 82962; 83036; 83540; 83550; 83880; 84484; 84703; 85025; 87400; 93005; 93017; 93460; 94640; 99156; 99285; C1769; C1894; C8929; G0378; J1644; J1650; J1940; J2250; J2785; J3010; J3490; J7613; J7626; Q0162; Q9967; A9502; C9898; J0360; J1200; J1815; J2060; J7030; Q0163

== ENCOUNTER → 2018-05-04 | Outpatient (CLI) | payer MEDICARE, MEDICAID ==
[~2018-05-04] MED LIST changes: +ASPI-515 PO; +FURO40TA6 PO; +LISI-167 PO; +METO25TA91 PO; +METO50TA82 PO; +POTA20TA6 PO; +SIMV40TA PO; +SPIR25TA5 PO
[2018-05-04 12:50] LABS: ANION GAP 7 mmol/L (5-15); CALCIUM 8.8 mg/dL (8.5-10.1); CHLORIDE 108 mmol/L (98-107)
[2018-05-04 12:52] LABS: CREATININE 0.89 mg/dL (0.55-1.02)
== END | disposition home or self-care (01) ==
LOC: CFH 10:37
PROVIDERS: ATTEND Internal Medicine Cardiovascular Disease
DX: I10 Essential (primary) hypertension (principal); I42.0 Dilated cardiomyopathy
CPT/HCPCS: 36415; 80048

== ENCOUNTER 2018-07-10 22:13 | Emergency (ER) | payer MEDICARE, MEDICAID ==
[~2018-07-10] VITALS: Ht 167.6 cm; Wt 130.0 kg
[~2018-07-10 22:13] MED LIST changes: -VANC250C2 PO; +VANC250C3 PO
[2018-07-10] MEDS ORDERED: ALBUTEROL/IPRATROPIUM 2.5MG/0.5MG, 3 ML ONE (22:50)
[2018-07-10] MEDS ORDERED: ALBUTEROL/IPRATROPIUM 2.5MG/0.5MG, 3 ML NEB ONE (23:00)
[2018-07-10] MEDS ORDERED: SODIUM CHLORIDE FLUSH 10ML SYR IVF ONE (23:00)
--- NOTE | 2018-07-10 23:04 | NUR ---
PT HERE FOR MULTIPLE COMPLAINTS. PRODUCTIVE COUGH AND SORE THROAT X 1 DAYS. VOMITING AND CHEST PAIN THAT STARTED AT 2100 AND SOB. HR AND BP ELEVATED. PT PLACED ON 2L O2 BECAUSE O2 SATS WAS 88 ON RA. LAB AT BEDSIDE. CALL LIGHT IN REACH
[2018-07-10 23:14] LABS: BASOPHILS # (AUTO) 0.01 x10^3/uL (0-0.1); BASOPHILS % (AUTO) 0 % (0-1); EOSINOPHILS # (AUTO) 0.43 x10^3/uL (0-0.4); EOSINOPHILS % (AUTO) 5 % (1-7); LYMPHOCYTES % (AUTO) 30 % (22-44); MD NO; MEAN CORPUSCULAR HEMOGLOBIN 22.7 pg (27.0-34.8); MEAN CORPUSCULAR HGB CONC 31.4 g/dL (32.4-35.8); MEAN CORPUSCULAR VOLUME 72.3 fL (80-100); MEAN PLATELET VOLUME 8.4 fL (7.4-10.4); MONOCYTES # (AUTO) 0.49 x10^3/uL (0.2-0.8); MONOCYTES % (AUTO) 6 % (2-9); NEUTROPHILS # (AUTO) 4.99 x10^3/uL (1.8-6.8); NEUTROPHILS % (AUTO) 59 % (42-75); PLATELET COUNT 276 x10^3/uL (130-400); RED BLOOD COUNT 6.73 x10^6/uL (3.82-5.3); RED CELL DISTRIBUTION WIDTH 16.7 % (9.6-15.2)
[2018-07-10 23:26] LABS: INTERNATIONAL NORMALIZED RATIO 0.96 (0.93-1.1); PROTHROMBIN TIME 10.1 Seconds (9.6-11.5)
[2018-07-10 23:27] LABS: ALANINE AMINOTRANSFERASE 22 U/L (12-78); ALBUMIN 3.4 g/dL (3.4-5.0); ANION GAP 6 mmol/L (5-15); CALCIUM 8.9 mg/dL (8.5-10.1); CHLORIDE 104 mmol/L (98-107); CREATININE 0.92 mg/dL (0.55-1.02)
[2018-07-10 23:31] LABS: ALKALINE PHOSPHATASE 59 U/L (45-117); BILIRUBIN,TOTAL 0.6 mg/dL (0.2-1.0); TOTAL PROTEIN 7.3 g/dL (6.4-8.2); TROPONIN I 0.033 ng/mL (0.000-0.045)
--- NOTE | 2018-07-11 00:32 | NUR ---
PIV PLACED IN RIGHT UPPER ARM FOR CTA. . PT TO GO TO CT
[2018-07-11] MEDS ORDERED: AMLO-150 PO (00:58)
[2018-07-11] MEDS ORDERED: TRAZ50TA66 PO (00:58)
--- NOTE | 2018-07-11 01:36 | NUR ---
cta neg pe pt is resting
--- NOTE | 2018-07-11 01:40 | NUR ---
trop will be check at 0200
[2018-07-11 02:13] LABS: TROPONIN I 0.042 ng/mL (0.000-0.045)
--- NOTE | 2018-07-11 02:37 | NUR ---
pt to go back by ella to [facility]. Report call to Cristina levin at [facility]
[2018-07-11 03:32] VITALS: BP 151/88
== END 2018-07-11 03:34 | disposition home or self-care (01) ==
LOC: ED 23:18
DX: R19.7 Diarrhea, unspecified (principal); R06.02 Shortness of breath; R11.2 Nausea with vomiting, unspecified; E11.9 Type 2 diabetes mellitus without complications; J44.9 Chronic obstructive pulmonary disease, unspecified; E78.5 Hyperlipidemia, unspecified; I25.2 Old myocardial infarction; I11.0 Hypertensive heart disease with heart failure; I50.9 Heart failure, unspecified; Z90.49 Acquired absence of other specified parts of digestive tract; Z86.73 Personal history of transient ischemic attack (TIA), and cerebral infarction without residual deficits; Z72.9 Problem related to lifestyle, unspecified
CPT/HCPCS: 36415; 71045; 71275; 80053; 83605; 83880; 84484; 85025; 85610; 85730; 87040; 93005; 94640; 99284; J7620

== ENCOUNTER 2018-07-14 23:58 | Emergency (ER) | payer MEDICARE, MEDICAID ==
[~2018-07-14] VITALS: Ht 177.8 cm; Wt 128.0 kg
[~2018-07-14 23:58] MED LIST changes: +AMLO-150 PO; +TRAZ50TA66 PO
--- NOTE | 2018-07-15 00:06 | NUR ---
ANGELICA GARCIA FROM [facility] FOR LEFT LEG PAIN, CONGESTION, COUGH X A FEW DAYS. PT ALSO C/O CHEST PAIN THAT LASTED FOR "A FEW SECONDS" AND SHORTNESS OF BREATH. PT WAS RECENTLY ADMITTED HERE FOR TIA, WHICH IS THE REASON SHE IS CURRENTLY AT [facility]. SHE REPORTS LEFT LEG PAIN SINCE YESTERDAY. DENIES ANY SWELLING OR REDNESS. PT ALSO C/O CONGESTION WITH CLEAR SPUTUM, PT REPORTS FEVER BUT IS AFEBRILE UPON ARRIVAL. EMS FOUND PT TO BE 87% ON RA. DIMINISHED LUNG SOUNDS BILATERALLY WITH UPPER BILATERAL WHEEZES. FSBS 260. ALL MONITORING EQUIPMENT APPLIED, SHOWING SINUS TACH WITH NO ECTOPY NOTED. NO ST CHANGES OR ECTOPY PRESENT. PT IN NAD, ABLE TO SPEAK FULL SENTENCES. CALL LIGHT WITHIN REACH. PROVIDER AT BEDSIDE EVALUATING PT. WILL CONTINUE TO MONITOR.
--- NOTE | 2018-07-15 00:23 | NUR ---
LAB AND XRAY AT BEDSIDE.
--- NOTE | 2018-07-15 00:43 | NUR ---
PT TO RESTROOM IN WHEELCHAIR, BACK TO BED WITHOUT DIFFICULTY.
[2018-07-15 00:49] LABS: ALANINE AMINOTRANSFERASE 23 U/L (12-78); ALBUMIN 3.3 g/dL (3.4-5.0); ANION GAP 8 mmol/L (5-15); CALCIUM 8.7 mg/dL (8.5-10.1); CHLORIDE 105 mmol/L (98-107)
[2018-07-15 00:53] LABS: MEAN CORPUSCULAR HEMOGLOBIN 22.1 pg (27.0-34.8); MEAN CORPUSCULAR HGB CONC 30.3 g/dL (32.4-35.8); MEAN CORPUSCULAR VOLUME 73.1 fL (80-100); MEAN PLATELET VOLUME 8.6 fL (7.4-10.4); PLATELET COUNT 273 x10^3/uL (130-400); RED BLOOD COUNT 6.74 x10^6/uL (3.82-5.3)
[2018-07-15 00:54] LABS: ALKALINE PHOSPHATASE 54 U/L (45-117); BILIRUBIN,TOTAL 0.5 mg/dL (0.2-1.0); CREATININE 0.94 mg/dL (0.55-1.02); TOTAL PROTEIN 7.3 g/dL (6.4-8.2); TROPONIN I 0.024 ng/mL (0.000-0.045)
--- NOTE | 2018-07-15 01:01 | NUR ---
US AT BEDSIDE
[2018-07-15 01:19] LABS: BASOPHILS # (AUTO) 0.07 x10^3/uL (0-0.1); BASOPHILS % (AUTO) 1 % (0-1); EOSINOPHILS # (AUTO) 0.47 x10^3/uL (0-0.4); EOSINOPHILS % (AUTO) 5 % (1-7); LYMPHOCYTES # (AUTO) 2.15 x10^3/uL (1-3.4); LYMPHOCYTES % (AUTO) 21 % (22-44); MD SCAN; MONOCYTES # (AUTO) 0.89 x10^3/uL (0.2-0.8); MONOCYTES % (AUTO) 9 % (2-9); NEUTROPHILS # (AUTO) 6.52 x10^3/uL (1.8-6.8); NEUTROPHILS % (AUTO) 65 % (42-75)
[2018-07-15 01:32] VITALS: BP 152/82
--- NOTE | 2018-07-15 01:48 | NUR ---
I CALLED AND SPOKE WITH ROBBIE AT [facility]. I ADVISED HER THE PT IS GOING TO BE DISCHARGED AND COMING BACK BY CAB. SHE STATED SOMEONE WOULD BE WAITING OUTSIDE FOR HER.
--- NOTE | 2018-07-15 02:22 | NUR ---
Patient/Caregiver given discharge instructions and they have confirmed that they understand the instructions. Patient ambulatory with steady gait.
--- NOTE | 2018-07-15 02:23 | NUR ---
PT PROVIDED WITH A CAB VOUCHER, ALSO IN POSSESSION OF PAPERWORK FROM SENDING FACILITY WELL DISCHARGE PAPERWORK WITH SUMMARY REPORT ATTACHED.
== END 2018-07-15 02:25 | disposition home or self-care (01) ==
LOC: ED 07-15 00:02
DX: R07.89 Other chest pain (principal); M79.605 Pain in left leg; M79.604 Pain in right leg; R09.02 Hypoxemia; G89.29 Other chronic pain; I25.2 Old myocardial infarction; E78.5 Hyperlipidemia, unspecified; J44.9 Chronic obstructive pulmonary disease, unspecified; I11.0 Hypertensive heart disease with heart failure; I50.9 Heart failure, unspecified; E11.9 Type 2 diabetes mellitus without complications; Z86.73 Personal history of transient ischemic attack (TIA), and cerebral infarction without residual deficits
CPT/HCPCS: 36415; 71045; 80053; 83880; 84484; 85025; 85379; 93005; 93970; 99284

== ENCOUNTER 2018-08-06 16:57 | Emergency (ER) | payer MEDICARE, MEDICAID ==
[~2018-08-06] VITALS: Ht 167.6 cm; Wt 139.7 kg
[2018-08-06 18:04] LABS: MEAN CORPUSCULAR HGB CONC 30.5 g/dL (32.4-35.8); MEAN CORPUSCULAR VOLUME 75.2 fL (80-100); MEAN PLATELET VOLUME 8.8 fL (7.4-10.4); PLATELET COUNT 257 x10^3/uL (130-400); RED BLOOD COUNT 6.71 x10^6/uL (3.82-5.3); RED CELL DISTRIBUTION WIDTH 17.8 % (9.6-15.2)
[2018-08-06 18:05] LABS: ALANINE AMINOTRANSFERASE 31 U/L (12-78); ALBUMIN 3.3 g/dL (3.4-5.0); ANION GAP 9 mmol/L (5-15); CALCIUM 8.4 mg/dL (8.5-10.1); CHLORIDE 107 mmol/L (98-107); CREATININE 1.05 mg/dL (0.55-1.02)
[2018-08-06 18:08] LABS: ALKALINE PHOSPHATASE 54 U/L (45-117); BILIRUBIN,TOTAL 1.3 mg/dL (0.2-1.0); TOTAL PROTEIN 7.3 g/dL (6.4-8.2)
[2018-08-06 18:23] LABS: MD YES
--- NOTE | 2018-08-06 18:46 | NUR ---
TO ROOM 4 FROM LOBBY
[2018-08-06 19:00] LABS: BAND#(MANUAL) 0.18 x10^3/uL; BANDS%(MANUAL) 2 % (0-7); EOS% (MANUAL) 8 % (1-7); LYMPH#(MANUAL) 0.88 x10^3/uL (1-3.4); LYMPHS% (MANUAL) 10 % (22-44); MONOS% (MANUAL) 8 % (2-9); NRBC % (MANUAL) 4 % (0-1); SEG#(MANUAL) 6.34 x10^3/uL (1.8-6.8); SEGS% (MANUAL) 72 % (42-75)
--- NOTE | 2018-08-06 19:00 | NUR ---
PT STATES ABDOMINAL PAIN WITH VOMITING AND DIARRHEA STARTED TODAY, STATING SHE PASSED OUT TWICE TODAY. HAS AN OCCASIONAL COUGH AND OXYGEN SATURATION FLUXUATES FROM 87 TO 91 PERCENT ON ROOM AIR
[2018-08-06 19:02] LABS: <PLATELET ESTIMATE> ADEQUATE; <PLT MORPHOLOGY> NORMAL PLT MORPH; ANISOCYTOSIS 1+; MICROCYTOSIS 2+
[2018-08-06] MEDS ORDERED: PROMETHAZINE 25 MG/ML, 1ML IM ONE (19:30)
--- NOTE | 2018-08-06 19:53 | NUR ---
PT PULLED CALL LIGHT FROM BATHROOM. PT GAVE STOOL SAMPLE, DIARRHEA. PT STATES SHE FEELS DIZZY AND LIKE SHE IS GOING TO PASS OUT. PT BROUGHT BACK TO ROOM VIA W/C
[2018-08-06] MEDS ORDERED: PROMETHAZINE 25 MG/ML, 1ML ONE (20:01)
[2018-08-06 20:06] LABS: MICROSCOPIC INDICATED
[2018-08-06 20:16] LABS: CULTURE INDICATED? NO
--- NOTE | 2018-08-06 20:31 | NUR ---
PT GIVEN PO CHALLENGE AFTER MEDICATED FOR NAUSEA AND VOMITING
--- NOTE | 2018-08-06 20:56 | NUR ---
REPORT TO MIRNA GRAY
--- NOTE | 2018-08-06 20:56 | NUR ---
REPORT RECEIVED AND CARE ASSUMED. PT ASKING FOR ICE CHIPS AND STATES SHE IS STILL VOMITING--NO VOMIT BAG NOTED BUT PT STATES SHE ALREADY THREW IT AWAY. PT IS HTN--STATES HX OF SAME AND HAS NOT MISSED ANY DOSES TODAY OF LISINOPRIL BUT CAN'T REMEMBER IF SHE TOOK IT THE LAST COUPLE DAYS. PT STATES "LET THE DOCTOR KNOW THAT I'M NOT FEELING READY TO GO HOME. I DON'T FEEL WELL ENOUGH". AWAITING C-DIF RESULTS. PT AWARE OF POC. NO FURTHER NEEDS EXPRESSED.
[2018-08-06 20:59] VITALS: BP 181/107
[2018-08-06 21:23] LABS: CLOSTRIDIUM DIFFICILE ANTIGEN NEGATIVE; CLOSTRIDIUM DIFFICILE TOXIN NEGATIVE (Negative)
== END 2018-08-06 21:59 | disposition home or self-care (01) ==
LOC: ED 18:47
DX: R11.2 Nausea with vomiting, unspecified (principal); R19.7 Diarrhea, unspecified; I10 Essential (primary) hypertension; E11.9 Type 2 diabetes mellitus without complications; J44.9 Chronic obstructive pulmonary disease, unspecified; E78.5 Hyperlipidemia, unspecified; Z72.9 Problem related to lifestyle, unspecified; I25.2 Old myocardial infarction; I11.0 Hypertensive heart disease with heart failure; I50.9 Heart failure, unspecified; Z87.891 Personal history of nicotine dependence; Z90.49 Acquired absence of other specified parts of digestive tract; Z86.73 Personal history of transient ischemic attack (TIA), and cerebral infarction without residual deficits
CPT/HCPCS: 36415; 74021; 80053; 81001; 83690; 85025; 87324; 89055; 93005; 96372; 99284; J2550

== ENCOUNTER 2018-08-24 23:54 | Emergency (ER) | payer MEDICARE, MEDICAID ==
[~2018-08-24] VITALS: Ht 167.6 cm; Wt 142.2 kg
[2018-08-25] MEDS ORDERED: PROMETHAZINE 25 MG/ML, 1ML ONE (00:21)
--- NOTE | 2018-08-25 00:29 | NUR ---
break rn: PT IN [facility]. URINE COLLECTED AND SENT TO LAB. PT MEDICATED WITH ORDERED MEDS. LABS DRAWN.
[2018-08-25] MEDS ORDERED: PROMETHAZINE 25 MG/ML, 1ML IM ONE (00:30)
[2018-08-25 00:42] LABS: ALANINE AMINOTRANSFERASE 42 U/L (12-78); ALBUMIN 2.8 g/dL (3.4-5.0); ANION GAP 8 mmol/L (5-15); CALCIUM 8.6 mg/dL (8.5-10.1); CHLORIDE 108 mmol/L (98-107); CREATININE 1.17 mg/dL (0.55-1.02)
[2018-08-25 00:44] LABS: ALKALINE PHOSPHATASE 53 U/L (45-117); BILIRUBIN,TOTAL 1.1 mg/dL (0.2-1.0); TOTAL PROTEIN 6.7 g/dL (6.4-8.2)
[2018-08-25 00:55] LABS: MD YES; MEAN CORPUSCULAR HEMOGLOBIN 22.8 pg (27.0-34.8); MEAN CORPUSCULAR HGB CONC 30.7 g/dL (32.4-35.8); MEAN CORPUSCULAR VOLUME 74.2 fL (80-100); MEAN PLATELET VOLUME 8.7 fL (7.4-10.4); PLATELET COUNT 267 x10^3/uL (130-400); RED BLOOD COUNT 6.65 x10^6/uL (3.82-5.3); RED CELL DISTRIBUTION WIDTH 18.4 % (9.6-15.2)
[2018-08-25 01:00] LABS: BASOS#(MANUAL) 0.17 x10^3/uL (0-0.1); BASOS% (MANUAL) 2 % (0-1); EOS#(MANUAL) 0.33 x10^3/uL (0.0-0.4); EOS% (MANUAL) 4 % (1-7); LYMPH#(MANUAL) 2.32 x10^3/uL (1-3.4); LYMPHS% (MANUAL) 28 % (22-44); MONOS#(MANUAL) 0.17 x10^3/uL (0.3-2.7); MONOS% (MANUAL) 2 % (2-9); NRBC % (MANUAL) 1 % (0-1); REACTIVE LYMPHS # (MANUAL) 0.33 x10^3/uL (0-0); REACTIVE LYMPHS % (MANUAL) 4 % (0-0); SEG#(MANUAL) 4.98 x10^3/uL (1.8-6.8); SEGS% (MANUAL) 60 % (42-75)
[2018-08-25 01:01] LABS: ANISOCYTOSIS 1+
[2018-08-25 01:02] LABS: MICROCYTOSIS 1+; POLYCHROMASIA 1+
[2018-08-25 01:03] LABS: OVALOCYTES 1+; TEAR DROPS 1+
[2018-08-25 01:05] LABS: <PLATELET ESTIMATE> ADEQUATE; <PLT MORPHOLOGY> NORMAL PLT MORPH
[2018-08-25 01:12] LABS: CULTURE INDICATED? YES; MICROSCOPIC INDICATED
--- NOTE | 2018-08-25 01:19 | NUR ---
PT RESTING. WAITING FOR LABS TO RESULT. PT IN NAD. CALL LIGHT IN REACH
[2018-08-25 01:25] VITALS: BP 158/92
[2018-08-25] MEDS ORDERED: METOCLOPRAMIDE 10MG TABLET PO ONE (01:30)
[2018-08-25] MEDS ORDERED: METOCLOPRAMIDE 10MG TABLET ONE (01:44)
--- NOTE | 2018-08-25 01:54 | NUR ---
PT MEDICATED. PT VERBALIZED UNDERSTANDING OF DISCHARGE INSTRUCTIONS. PT GETTING DRESSED.
== END 2018-08-25 02:22 | disposition home or self-care (01) ==
LOC: ED 08-25 00:41
DX: A09 Infectious gastroenteritis and colitis, unspecified (principal); E11.9 Type 2 diabetes mellitus without complications; J44.9 Chronic obstructive pulmonary disease, unspecified; I11.0 Hypertensive heart disease with heart failure; I50.9 Heart failure, unspecified; F41.1 Generalized anxiety disorder; E78.5 Hyperlipidemia, unspecified; Z72.9 Problem related to lifestyle, unspecified; Z90.49 Acquired absence of other specified parts of digestive tract
CPT/HCPCS: 36415; 80053; 81001; 83690; 85025; 87086; 93005; 96372; 99284; J2550

== ENCOUNTER 2019-02-06 15:36 | Emergency (ER) | payer MEDICAID, MEDICARE ==
[~2019-02-06] VITALS: Ht 167.6 cm; Wt 136.0 kg
[~2019-02-06 15:36] MED LIST changes: +ATOR20TA37 PO; +HYDR12.517 PO; +LISI40TA PO
--- NOTE | 2019-02-06 15:48 | NUR ---
AMBULATED TO BATHROOM STEADY GAIT AND WITHOUT ASSISTANCE
--- NOTE | 2019-02-06 15:58 | NUR ---
SPEAKING IN FULL SENTENCES WITHOUT SOB. PLACED ON OXYGEN 2L WITH 91 PERCENT NOTED.
--- NOTE | 2019-02-06 16:05 | NUR ---
AT BEDSIDE -- 93 PERCENT O2 SAT ON RA OBTAINED
[2019-02-06 16:18] LABS: RAPID INFLUENZA A Negative (Negative); RAPID INFLUENZA B Negative (Negative)
[2019-02-06] MEDS ORDERED: SODIUM CHLORIDE 0.9% 1,000ML IVBOLUS ONE (16:30)
--- NOTE | 2019-02-06 17:00 | NUR ---
IV BOLUS INFUSING
--- NOTE | 2019-02-06 18:32 | NUR ---
VS UPDATED AFTER IV BOLUS COMPLETED. PT UP TO BATHROOM
--- NOTE | 2019-02-06 19:08 | NUR ---
AT BEDSIDE RE-EXAMINING PT. REPORT TO RONALD GRAY
--- NOTE | 2019-02-06 19:28 | NUR ---
AT , AWARE OF PLAN TO DC. PT DRESSED & READY TO GO.
[2019-02-06 19:38] VITALS: BP 116/112
== END 2019-02-06 19:41 | disposition home or self-care (01) ==
LOC: ED 19:15
DX: J10.1 Influenza due to other identified influenza virus with other respiratory manifestations (principal); I10 Essential (primary) hypertension; E11.9 Type 2 diabetes mellitus without complications; E78.5 Hyperlipidemia, unspecified; Z87.891 Personal history of nicotine dependence; E66.01 Morbid (severe) obesity due to excess calories; Z68.42 Body mass index [BMI] 45.0-49.9, adult
CPT/HCPCS: 71045; 87400; 93005; 99284; J7030

== ENCOUNTER 2019-02-28 20:54 | Emergency (ER) | payer MEDICAID, MEDICARE ==
[~2019-02-28] VITALS: Ht 167.6 cm; Wt 139.2 kg
[2019-02-28] MEDS ORDERED: PROMETHAZINE 25 MG/ML, 1ML ONE (21:48)
[2019-02-28 21:58] LABS: RAPID INFLUENZA A Negative (Negative); RAPID INFLUENZA B Negative (Negative)
[2019-02-28] MEDS ORDERED: ALBUTEROL/IPRATROPIUM 2.5MG/0.5MG, 3 ML NPPB ONE (22:00)
[2019-02-28] MEDS ORDERED: PROMETHAZINE 25 MG/ML, 1ML IM ONE (22:00)
[2019-02-28] MEDS ORDERED: ALBUTEROL/IPRATROPIUM 2.5MG/0.5MG, 3 ML ONE (22:04)
[2019-02-28 22:34] LABS: MEAN CORPUSCULAR HEMOGLOBIN 23.5 pg (27.0-34.8); MEAN CORPUSCULAR HGB CONC 30.3 g/dL (32.4-35.8); MEAN CORPUSCULAR VOLUME 77.5 fL (80-100); PLATELET COUNT 308 x10^3/uL (130-400); RED BLOOD COUNT 5.97 x10^6/uL (3.82-5.3); RED CELL DISTRIBUTION WIDTH 19.2 % (9.6-15.2)
[2019-02-28 22:37] LABS: ANION GAP 8 mmol/L (5-15); CALCIUM 8.8 mg/dL (8.5-10.1); CHLORIDE 104 mmol/L (98-107)
[2019-02-28 22:42] LABS: CREATININE 1.02 mg/dL (0.55-1.02); TROPONIN I < 0.015 ng/mL (0.000-0.045)
[2019-02-28 22:58] LABS: MD YES
[2019-02-28 23:01] LABS: BASOS#(MANUAL) 0.08 x10^3/uL (0-0.1); BASOS% (MANUAL) 1 % (0-1); EOS#(MANUAL) 0.23 x10^3/uL (0.0-0.4); EOS% (MANUAL) 3 % (1-7); LYMPH#(MANUAL) 1.75 x10^3/uL (1-3.4); LYMPHS% (MANUAL) 23 % (22-44); MONOS#(MANUAL) 0.68 x10^3/uL (0.3-2.7); MONOS% (MANUAL) 9 % (2-9); SEG#(MANUAL) 4.86 x10^3/uL (1.8-6.8); SEGS% (MANUAL) 64 % (42-75)
[2019-02-28 23:02] LABS: ANISOCYTOSIS 1+; OVALOCYTES 1+; POLYCHROMASIA 1+; TEAR DROPS 1+
[2019-02-28 23:05] LABS: <PLATELET ESTIMATE> ADEQUATE; <PLT MORPHOLOGY> NORMAL PLT MORPH
[2019-02-28] MEDS ORDERED: FUROSEMIDE 20 MG TABLET ONE (23:10)
[2019-02-28] MEDS ORDERED: POTASSIUM CHLORIDE 20 MEQ TAB.ER.PRT ONE (23:10)
[2019-02-28] MEDS ORDERED: POTASSIUM CHLORIDE 20 MEQ TAB.ER.PRT PO ONE (23:30)
[2019-02-28] MEDS ORDERED: FUROSEMIDE 20 MG TABLET PO ONE (23:30)
[2019-03-01 00:31] VITALS: BP 169/96
== END 2019-03-01 00:32 | disposition home or self-care (01) ==
LOC: ED 23:23
DX: J44.1 Chronic obstructive pulmonary disease with (acute) exacerbation (principal); E11.9 Type 2 diabetes mellitus without complications; I25.2 Old myocardial infarction; J06.9 Acute upper respiratory infection, unspecified; J81.0 Acute pulmonary edema; I11.0 Hypertensive heart disease with heart failure; Z86.73 Personal history of transient ischemic attack (TIA), and cerebral infarction without residual deficits; Z90.49 Acquired absence of other specified parts of digestive tract
CPT/HCPCS: 36415; 71046; 80048; 84484; 85025; 87081; 87400; 87880; 93005; 94640; 96372; 99284; J2550; J7620

== ENCOUNTER 2019-03-13 03:00 | Emergency (ER) | payer MEDICARE, MEDICAID ==
[2019-03-13] MEDS ORDERED: ALBUTEROL/IPRATROPIUM 2.5MG/0.5MG, 3 ML NPPB ONE (03:30)
--- NOTE | 2019-03-13 03:36 | NUR ---
TP RN: RT PAGED.
[2019-03-13] MEDS ORDERED: ALBUTEROL/IPRATROPIUM 2.5MG/0.5MG, 3 ML ONE (03:38)
--- NOTE | 2019-03-13 03:51 | NUR ---
Patient came in via taxi. She states she was at the [facility] and fell down 5 stairs. She states she lost consciousness for an unknown amount of time. Patient is c/o left ankle pain. She is also short of breath and states she should be on O2 but the [facility] won't let her have it there. Patient's RA sat is 84-88%. Patient placed on 3 lpm O2 via NC.
[2019-03-13] MEDS ORDERED: IPRATROPIUM 0.5 MG/2.5 ML INHA ONE (03:56)
[2019-03-13] MEDS ORDERED: IPRATROPIUM 0.5 MG/2.5 ML INHA NPPB ONE (04:00)
[2019-03-13] MEDS ORDERED: DIPHENHYDRAMINE 25 MG CAPSULE PO ONE (04:00)
[2019-03-13] MEDS ORDERED: DIPHENHYDRAMINE 25 MG CAPSULE ONE (04:08)
--- NOTE | 2019-03-13 04:12 | NUR ---
Patient asked to call friend to let her know pt is in the er. Called Mehreen ([phone]) and left a vm. Patient states she was itchy. Administered meds per mar.
--- NOTE | 2019-03-13 05:20 | NUR ---
Patient given discharge instructions and they have confirmed that they understand the instructions. Patient ambulatory with steady gait. Belongings with patient.
[2019-03-13 05:22] VITALS: BP 155/110
== END 2019-03-13 04:34 | disposition home or self-care (01) ==
LOC: ED 03:34
DX: S00.93XA Contusion of unspecified part of head, initial encounter (principal); S90.02XA Contusion of left ankle, initial encounter; E11.9 Type 2 diabetes mellitus without complications; J44.0 Chronic obstructive pulmonary disease with (acute) lower respiratory infection; I25.2 Old myocardial infarction; I50.9 Heart failure, unspecified; Z86.73 Personal history of transient ischemic attack (TIA), and cerebral infarction without residual deficits; Z72.89 Other problems related to lifestyle; Z90.49 Acquired absence of other specified parts of digestive tract; W10.8XXA Fall (on) (from) other stairs and steps, initial encounter; Y93.89 Activity, other specified; Y92.89 Other specified places as the place of occurrence of the external cause; Y99.8 Other external cause status
CPT/HCPCS: 70450; 71045; 73610; 82962; 93005; 94640; 99284; Q0163

== ENCOUNTER 2019-05-13 15:36 | Observation (INO) | payer OTHER, MEDICARE, MEDICAID ==
[~2019-05-13] VITALS: Ht 167.6 cm; Wt 137.5 kg
--- NOTE | 2019-05-13 15:45 | NUR ---
ASSUMED CARE OF PATIENT. PT BIB [facility] FOR A COUGH, PT WAS FOUND TO BE 78% RA. PT IS NOW 96% ON 3L NC. DR HYDE IN ROOM. VS STABLE. SUPERVISOR FITTING ON. SINUS TACH NOTED. CALL LIGHT IN PLACE. WILL CONTINUE TO MONITOR.
[2019-05-13] MEDS ORDERED: SODIUM CHLORIDE FLUSH 10ML SYR IVF ONE (16:00)
--- NOTE | 2019-05-13 16:33 | NUR ---
PT IS ON CELL PHONE IN ROOM. VS STABLE. RAILROAD YARD WORKER ON. OXYGEN ON. NO ACUTE DISTRESS NOTED. CALL LIGHT IN PLACE. WILL CONTINUE TO MONITOR.
[2019-05-13 16:39] LABS: ALANINE AMINOTRANSFERASE 22 U/L (12-78); ALBUMIN 3.6 g/dL (3.4-5.0); ANION GAP 6 mmol/L (5-15); CHLORIDE 108 mmol/L (98-107)
[2019-05-13 16:44] LABS: ALKALINE PHOSPHATASE 53 U/L (45-117); BILIRUBIN,TOTAL 1.1 mg/dL (0.2-1.0); CREATININE 1.01 mg/dL (0.55-1.02); TOTAL PROTEIN 7.2 g/dL (6.4-8.2); TROPONIN I < 0.015 ng/mL (0.000-0.045)
--- NOTE | 2019-05-13 16:59 | NUR ---
PT IS RESTING IN ROOM. ELECTROSTATIC PAINTER ON. SINSU TACH NOTED. OXYGEN ON. VS STABLE. CALL LIGHT IN PLACE. WILL CONTINUE TO MONITOR.
[2019-05-13 17:05] LABS: MD YES; MEAN CORPUSCULAR HEMOGLOBIN 23.2 pg (27.0-34.8); MEAN CORPUSCULAR HGB CONC 31.2 g/dL (32.4-35.8); MEAN CORPUSCULAR VOLUME 74.3 fL (80-100); MEAN PLATELET VOLUME 9.6 fL (7.4-10.4); PLATELET COUNT 303 x10^3/uL (130-400); RED BLOOD COUNT 6.26 x10^6/uL (3.82-5.3)
[2019-05-13 17:26] LABS: ANISOCYTOSIS 1+; EOS#(MANUAL) 0.17 x10^3/uL (0.0-0.4); EOS% (MANUAL) 2 % (1-7); LYMPH#(MANUAL) 2.06 x10^3/uL (1-3.4); LYMPHS% (MANUAL) 24 % (22-44); MONOS#(MANUAL) 0.69 x10^3/uL (0.3-2.7); MONOS% (MANUAL) 8 % (2-9); POLYCHROMASIA 1+; SEG#(MANUAL) 5.68 x10^3/uL (1.8-6.8); SEGS% (MANUAL) 66 % (42-75)
[2019-05-13 17:27] LABS: <PLATELET ESTIMATE> ADEQUATE; <PLT MORPHOLOGY> NORMAL PLT MORPH; MICROCYTOSIS 1+; OVALOCYTES 1+
[2019-05-13] MEDS ORDERED: FUROSEMIDE 40 MG/4 ML ONE (17:35)
[2019-05-13] MEDS ORDERED: MORPHINE SULFATE 4 MG/ML, 1ML ONE ×2 (17:36→19:08)
[2019-05-13] MEDS ORDERED: DIPHENHYDRAMINE 25 MG CAPSULE ONE (17:36)
[2019-05-13] MEDS: MORPHINE SULFATE 4 MG/ML, 1ML IVPush PRN ×2 (17:42→19:16)
--- NOTE | 2019-05-13 17:50 | NUR ---
PT RESTING IN ROOM. VS STABLE. CALL LIGHT IN PLACE. BURNING PLANT OPERATOR ON. SINUS TACH NOTED. CALL LIGHT IN PLACE. WILL CONTINUE TO MONITOR.
[2019-05-13] MEDS ORDERED: DIPHENHYDRAMINE 25 MG CAPSULE PO ONE (18:00)
[2019-05-13] MEDS ORDERED: FUROSEMIDE 40 MG/4 ML IV ONE (18:00)
--- NOTE | 2019-05-13 18:19 | NUR ---
HOSPITALIST IN ROOM
--- NOTE | 2019-05-13 18:24 | NUR ---
RAVIN REFINERY OPERATOR ASSISTANT (HOSPITALIST) AWARE OF BP
--- NOTE | 2019-05-13 18:55 | NUR ---
REPORT GIVEN TO ISAAC MCINTOSH
[2019-05-13] MEDS ORDERED: METOPROLOL TARTRATE 50 MG TAB ONE (19:08)
[2019-05-13] MEDS: METOPROLOL TARTRATE 50 MG TAB PO SCH (19:16)
[2019-05-13] MEDS ORDERED: LIDODERM 5% PATCH TD PRN (19:30)
[2019-05-13] MEDS ORDERED: DOCUSATE 100 MG CAPSULE PO PRN (19:30)
[2019-05-13] MEDS: ENOXAPARIN 40 MG/0.4 ML SQ SCH (19:30)
[2019-05-13] MEDS ORDERED: hydrALAzine 20 MG/ML, 1ML IVPush PRN (19:30)
[2019-05-13] MEDS ORDERED: GABAPENTIN 300 MG CAPSULE PO PRN (19:30)
[2019-05-13] MEDS ORDERED: ACETAMINOPHEN 325 MG TABLET PO PRN (19:30)
[2019-05-13] MEDS ORDERED: SUMATRIPTAN 25 MG TABLET PO PRN (19:30)
--- NOTE | 2019-05-13 19:32 | NUR ---
Report called to Eliezer GRAY.
[2019-05-13 19:59] VITALS: BP_SYST 171; BP_SYST 185; BP_DIAS 139; BP_DIAS 152
[2019-05-13 20:36] VITALS: BP 171/134
[2019-05-13] MEDS ORDERED: INSU100V8 SQ (21:21)
[2019-05-13] MEDS ORDERED: INSU100I11 SQ (21:23)
[2019-05-13] MEDS ORDERED: QUET200T4 PO (21:45)
[2019-05-13 23:18] LABS: TROPONIN I < 0.015 ng/mL (0.000-0.045)
[2019-05-14 00:06] VITALS: BP 152/103
[2019-05-14] MEDS ORDERED: QUETIAPINE 25MG TABLET PO ONE (00:30)
[2019-05-14 05:09] LABS: ANION GAP 6 mmol/L (5-15); CALCIUM 8.6 mg/dL (8.5-10.1); CHLORIDE 105 mmol/L (98-107)
[2019-05-14 05:10] VITALS: BP 102/73
[2019-05-14] MEDS: METOPROLOL TARTRATE 50 MG TAB PO SCH ×2 (05:12→18:33)
[2019-05-14 05:14] LABS: CREATININE 0.87 mg/dL (0.55-1.02); TROPONIN I < 0.015 ng/mL (0.000-0.045)
[2019-05-14 05:51] LABS: MEAN CORPUSCULAR HEMOGLOBIN 23.2 pg (27.0-34.8); MEAN CORPUSCULAR HGB CONC 30.6 g/dL (32.4-35.8); MEAN CORPUSCULAR VOLUME 75.7 fL (80-100); MEAN PLATELET VOLUME 9.7 fL (7.4-10.4); PLATELET COUNT 274 x10^3/uL (130-400); RED CELL DISTRIBUTION WIDTH 18.5 % (9.6-15.2)
[2019-05-14 05:52] LABS: MD YES
[2019-05-14 05:54] LABS: ANISOCYTOSIS 1+; EOS#(MANUAL) 0.37 x10^3/uL (0.0-0.4); EOS% (MANUAL) 4 % (1-7); LYMPH#(MANUAL) 2.79 x10^3/uL (1-3.4); LYMPHS% (MANUAL) 30 % (22-44); MICROCYTOSIS 1+; MONOS#(MANUAL) 0.84 x10^3/uL (0.3-2.7); MONOS% (MANUAL) 9 % (2-9); NRBC % (MANUAL) 2 % (0-1); OVALOCYTES 1+; POLYCHROMASIA 1+; SEGS% (MANUAL) 57 % (42-75); TEAR DROPS 1+
[2019-05-14 05:55] LABS: <PLATELET ESTIMATE> ADEQUATE; <PLT MORPHOLOGY> NORMAL PLT MORPH; HYPOCHROMIA 1+
[2019-05-14 06:49] VITALS: BP 132/92
[2019-05-14] MEDS ORDERED: FUROSEMIDE 40 MG/4 ML IV SCH (07:30)
[2019-05-14] MEDS: LIDODERM REMOVE PATCH NOTE XX SCH (08:30)
[2019-05-14] MEDS: ASPIRIN 81 MG TABLET EC PO SCH (09:04)
[2019-05-14] MEDS: HYDROCHLOROTHIAZIDE 12.5 MG CAPSULE PO SCH (09:04)
[2019-05-14 12:47] VITALS: BP 144/92
[2019-05-14] MEDS: LEVOFLOXACIN/PMX 750MG/150ML 150 ML IV SCH ×2 (13:48→15:03)
[2019-05-14] MEDS: POTASSIUM CHLORIDE 20 MEQ TAB.ER.PRT PO SCH (13:48)
[2019-05-14 14:47] VITALS: BP 156/103
[2019-05-14] MEDS ORDERED: DIPHENHYDRAMINE 50 MG/ML, 1ML ONE (14:57)
[2019-05-14] MEDS ORDERED: DIPHENHYDRAMINE 50 MG/ML, 1ML IVPush ONE (15:00)
[2019-05-14 15:04] LABS: MICROSCOPIC AUTO
[2019-05-14 15:11] LABS: CULTURE INDICATED? NO
[2019-05-14 15:19] LABS: RAPID INFLUENZA A Negative (Negative); RAPID INFLUENZA B Negative (Negative)
[2019-05-14] MEDS ORDERED: CEFTRIAXONE PMX 1GM/50ML 50 ML IV SCH (15:30)
[2019-05-14] MEDS: ENOXAPARIN 40 MG/0.4 ML SQ SCH (18:29)
[2019-05-14 20:12] VITALS: BP 158/111
[2019-05-14] MEDS ORDERED: DIPHENHYDRAMINE 25 MG CAPSULE PO ONE (20:30)
[2019-05-14] MEDS: GUAIFENESIN ER 600 MG TABLET PO SCH (20:42)
[2019-05-14] MEDS ORDERED: LISINOPRIL 10 MG TABLET PO SCH (21:00)
[2019-05-15 01:04] VITALS: BP 121/75
[2019-05-15] MEDS: METOPROLOL TARTRATE 50 MG TAB PO SCH (06:00)
[2019-05-15 06:27] LABS: ANION GAP 4 mmol/L (5-15); CHLORIDE 100 mmol/L (98-107)
[2019-05-15 06:32] VITALS: BP 148/91
[2019-05-15 07:17] LABS: BASOPHILS # (AUTO) 0.01 x10^3/uL (0-0.1); BASOPHILS % (AUTO) 0 % (0-1); EOSINOPHILS # (AUTO) 0.23 x10^3/uL (0-0.4); EOSINOPHILS % (AUTO) 3 % (1-7); LYMPHOCYTES # (AUTO) 0.99 x10^3/uL (1-3.4); LYMPHOCYTES % (AUTO) 13 % (22-44); MD NO; MEAN CORPUSCULAR HEMOGLOBIN 23.4 pg (27.0-34.8); MEAN CORPUSCULAR HGB CONC 30.9 g/dL (32.4-35.8); MEAN CORPUSCULAR VOLUME 75.7 fL (80-100); MEAN PLATELET VOLUME 9.3 fL (7.4-10.4); MONOCYTES % (AUTO) 9 % (2-9); NEUTROPHILS # (AUTO) 5.65 x10^3/uL (1.8-6.8); NEUTROPHILS % (AUTO) 75 % (42-75); PLATELET COUNT 256 x10^3/uL (130-400); RED BLOOD COUNT 6.35 x10^6/uL (3.82-5.3); RED CELL DISTRIBUTION WIDTH 18.1 % (9.6-15.2)
[2019-05-15 07:18] LABS: HEMOGRAM NOTE RECHECKED
[2019-05-15] MEDS: LIDODERM REMOVE PATCH NOTE XX SCH (08:30)
[2019-05-15] MEDS ORDERED: FUROSEMIDE 40 MG/4 ML IV SCH (09:00)
[2019-05-15] MEDS ORDERED: GUAIFENESIN/COD200MG-20MG/10ML LIQUID PO PRN (10:00)
[2019-05-15] MEDS: GUAIFENESIN ER 600 MG TABLET PO SCH (10:08)
[2019-05-15] MEDS: ASPIRIN 81 MG TABLET EC PO SCH (10:08)
[2019-05-15] MEDS: POTASSIUM CHLORIDE 20 MEQ TAB.ER.PRT PO SCH (10:09)
[2019-05-15] MEDS: HYDROCHLOROTHIAZIDE 12.5 MG CAPSULE PO SCH (10:09)
[2019-05-15] MEDS ORDERED: METO50TA82 PO (11:57)
[2019-05-15] MEDS ORDERED: LISI40TA PO (11:57)
[2019-05-15] MEDS ORDERED: POTA20TA6 PO (11:57)
[2019-05-15] MEDS ORDERED: FURO40TA6 PO (11:57)
[2019-05-15] MEDS ORDERED: GUAI600T31 PO (11:57)
[2019-05-15] MEDS ORDERED: CEPH-368 PO (11:57)
[2019-05-15] MEDS ORDERED: CEPHALEXIN 500 MG CAPSULE PO ONE (12:00)
[2019-05-15 12:01] VITALS: BP 147/98
== END 2019-05-15 13:00 | disposition home or self-care (01) ==
LOC: ED 16:23 → INTOOBSV 17:25 → EDIP 17:25 → 4WST 19:48 → DCLOUNGE 05-15 12:40
PROVIDERS: ADMIT Internal Medicine Infectious Disease; ATTEND Hospitalist
DX: J96.01 Acute respiratory failure with hypoxia (principal); J15.6 Pneumonia due to other Gram-negative bacteria; E66.2 Morbid (severe) obesity with alveolar hypoventilation; Z68.42 Body mass index [BMI] 45.0-49.9, adult; E11.9 Type 2 diabetes mellitus without complications; E78.5 Hyperlipidemia, unspecified; F41.1 Generalized anxiety disorder; F64.9 Gender identity disorder, unspecified; G43.909 Migraine, unspecified, not intractable, without status migrainosus; I11.0 Hypertensive heart disease with heart failure; I16.0 Hypertensive urgency; F32.9 Major depressive disorder, single episode, unspecified; R19.7 Diarrhea, unspecified; I25.10 Atherosclerotic heart disease of native coronary artery without angina pectoris; I50.9 Heart failure, unspecified; Z83.3 Family history of diabetes mellitus; Z59.0 Homelessness; I25.2 Old myocardial infarction; Z86.73 Personal history of transient ischemic attack (TIA), and cerebral infarction without residual deficits; Z91.19 Patient's noncompliance with other medical treatment and regimen; Z88.0 Allergy status to penicillin; Z88.1 Allergy status to other antibiotic agents; Z88.8 Allergy status to other drugs, medicaments and biological substances
CPT/HCPCS: 36415; 71045; 80048; 80053; 81001; 82962; 83880; 84443; 84484; 85025; 85379; 87400; 93005; 93306; 96365; 96375; 96376; 99285; G0378; J0360; J0696; J1200; J1940; J2270; Q0163; 96374; J1956

== ENCOUNTER 2020-05-21 15:59 | Inpatient (IN) | payer OTHER, MEDICAID ==
[~2020-05-21] VITALS: Ht 167.6 cm; Wt 143.0 kg
[~2020-05-21 15:59] MED LIST changes: -ASPI-515 PO; +ASPI-963 PO; +CEPH-368 PO; +GUAI600T31 PO; +INSU100I11 SQ; +INSU100V8 SQ; -LISI40TA PO; +LISI40TA9 PO; +QUET200T4 PO
--- NOTE | 2020-05-21 16:30 | NUR ---
PT AMBULATED TO BR INDEPENDENTLY. PT WITH SLIGHT INCREASED WORK OF BREATHING DURING AMBULATION. ONCE BACK TO BED SPO2 93% ON RA. NO OTHER NEEDS AT THIS TIME.
[2020-05-21] MEDS ORDERED: hydrALAzine 20 MG/ML, 1ML IV ONE (17:00)
[2020-05-21 17:34] LABS: ALANINE AMINOTRANSFERASE 35 U/L (12-78); ALBUMIN 3.4 g/dL (3.4-5.0); ANION GAP 6 mmol/L (5-15); C-REACTIVE PROTEIN, QUANT 0.23 mg/dL (0.02-0.49); CALCIUM 8.8 mg/dL (8.5-10.1); CHLORIDE 106 mmol/L (98-107); CREATININE 1.07 mg/dL (0.55-1.02)
[2020-05-21 17:39] LABS: ALKALINE PHOSPHATASE 70 U/L (45-117); BILIRUBIN,TOTAL 0.7 mg/dL (0.2-1.0); TOTAL PROTEIN 7.2 g/dL (6.4-8.2)
[2020-05-21 17:40] LABS: BASOPHILS % (AUTO) 2 % (0-1); EOSINOPHILS % (AUTO) 3 % (1-7); LYMPHOCYTES % (AUTO) 26 % (22-44); MEAN CORPUSCULAR HEMOGLOBIN 22.7 pg (27.0-34.8); MEAN CORPUSCULAR HGB CONC 31.1 g/dL (32.4-35.8); MEAN PLATELET VOLUME 8.3 fL (7.4-10.4); MONOCYTES % (AUTO) 12 % (2-9); NEUTROPHILS % (AUTO) 57 % (42-75); PLATELET COUNT 343 x10^3/uL (130-400); RED BLOOD COUNT 6.13 x10^6/uL (3.82-5.3); RED CELL DISTRIBUTION WIDTH 18.8 % (9.6-15.2)
[2020-05-21] MEDS ORDERED: MORPHINE SULFATE 4 MG/ML, 1ML ONE ×2 (17:40→19:23)
[2020-05-21 17:41] LABS: MD NO
[2020-05-21] MEDS ORDERED: hydrALAzine 20 MG/ML, 1ML ONE (17:43)
[2020-05-21] MEDS: MORPHINE SULFATE 4 MG/ML, 1ML IVPush PRN ×2 (17:49→19:32)
[2020-05-21 17:51] LABS: D-DIMER (DIC) 0.29 ug/mlFEU (0.00-0.52); PROTIME 10.4 Seconds (9.6-11.5)
[2020-05-21] MEDS ORDERED: DIPHENHYDRAMINE 50 MG/ML, 1ML ONE ×2 (18:17→20:03)
[2020-05-21] MEDS ORDERED: FUROSEMIDE 40 MG/4 ML ONE (18:54)
[2020-05-21] MEDS ORDERED: ENALAPRILAT 1.25 MG/ML, 1ML ONE (18:54)
[2020-05-21] MEDS ORDERED: FUROSEMIDE 40 MG/4 ML IV ONE (19:00)
[2020-05-21] MEDS ORDERED: DIPHENHYDRAMINE 50 MG/ML, 1ML IV ONE ×2 (19:00→20:00)
[2020-05-21] MEDS ORDERED: ENALAPRILAT 1.25 MG/ML, 2ML IV ONE (19:00)
[2020-05-21] MEDS ORDERED: OMNIPAQUE 350 MG/ML, 100ML BOTTLE ONE (19:05)
--- NOTE | 2020-05-21 19:33 | NUR ---
Task rn:medicated per emar for continued htn, fluid retention/abd pain at 10/22 updated on estimated poc With assessment reports worsening itching to back/neck/groin after contrast (known allergy) despite [id number] aware
[2020-05-21] MEDS ORDERED: methylPREDNISolone SOD SUCC 125 MG/2 ML IVPush ONE (20:00)
[2020-05-21] MEDS ORDERED: methylPREDNISolone SOD SUCC 125 MG/2 ML ONE (20:02)
[2020-05-21] MEDS: INSULIN GLARGINE 100 UNITS/ML, PEN SQ-INSULIN SCH (21:00)
--- NOTE | 2020-05-21 21:16 | NUR ---
REPORT FROM DAVID GRAY.
--- NOTE | 2020-05-21 21:22 | NUR ---
report to lizabeth levin
[2020-05-21] MEDS ORDERED: POLYETHYLENE GLYCOL 17 GM PACKET PO PRN (21:30)
[2020-05-21] MEDS ORDERED: BISACODYL 10 MG SUPP PR PRN (21:30)
[2020-05-21] MEDS: SODIUM CHLORIDE FLUSH 10ML SYR IVF SCH (21:30)
[2020-05-21] MEDS: HEPARIN 5,000 UNITS/ML, 1ML SQ SCH (21:30)
--- NOTE | 2020-05-21 21:42 | NUR ---
REPORT TO DELIA GRAY.
[2020-05-21 22:26] VITALS: BP 169/111
[2020-05-21 22:27] VITALS: BP 169/111
[2020-05-21 22:45] VITALS: BP 169/111
[2020-05-21] MEDS: INSULIN LISPRO 100 UNITS/ML, PEN SQ-INSULIN SCH (23:38)
[2020-05-22 02:48] VITALS: BP 163/102
[2020-05-22] MEDS: DIPHENHYDRAMINE 50 MG/ML, 1ML IVPush PRN ×4 (04:17→23:20)
[2020-05-22] MEDS: HEPARIN 5,000 UNITS/ML, 1ML SQ SCH ×3 (05:30→20:38)
[2020-05-22 05:35] LABS: BASOPHILS % (AUTO) 0 % (0-1); EOSINOPHILS % (AUTO) 0 % (1-7); LYMPHOCYTES % (AUTO) 4 % (22-44); MEAN CORPUSCULAR HGB CONC 31.6 g/dL (32.4-35.8); MEAN PLATELET VOLUME 8.1 fL (7.4-10.4); MONOCYTES % (AUTO) 1 % (2-9); NEUTROPHILS % (AUTO) 95 % (42-75); PLATELET COUNT 323 x10^3/uL (130-400); RED BLOOD COUNT 6.19 x10^6/uL (3.82-5.3); RED CELL DISTRIBUTION WIDTH 18.7 % (9.6-15.2)
[2020-05-22] MEDS: METOPROLOL TARTRATE 50 MG TAB PO SCH ×2 (05:37→17:06)
[2020-05-22 05:38] LABS: MD SCAN
[2020-05-22 05:44] LABS: ANION GAP 12 mmol/L (5-15); CALCIUM 9.2 mg/dL (8.5-10.1); CHLORIDE 101 mmol/L (98-107); CREATININE 1.24 mg/dL (0.55-1.02)
[2020-05-22] MEDS: SENNA/DOCUSATE TABLET PO SCH (07:21)
[2020-05-22 07:45] LABS: TROPONIN I < 0.015 ng/mL (0.000-0.045)
[2020-05-22] MEDS: INSULIN LISPRO 100 UNITS/ML, PEN SQ-INSULIN SCH ×4 (08:21→20:32)
[2020-05-22] MEDS: POTASSIUM CHLORIDE 20 MEQ TAB.ER.PRT PO SCH (08:22)
[2020-05-22] MEDS: LISINOPRIL 40 MG TABLET PO SCH (08:22)
[2020-05-22] MEDS: ASPIRIN 81 MG TABLET EC PO SCH (08:22)
[2020-05-22] MEDS: FUROSEMIDE 40 MG/4 ML IV SCH ×2 (08:22→16:53)
[2020-05-22 08:23] VITALS: BP 165/106
[2020-05-22] MEDS: SODIUM CHLORIDE FLUSH 10ML SYR IVF SCH ×2 (08:23→20:39)
[2020-05-22] MEDS: ACETAMINOPHEN 325 MG TABLET PO PRN ×2 (10:33→16:54)
[2020-05-22] MEDS: LOPERAMIDE 2 MG CAPSULE PO PRN ×2 (10:33→16:53)
[2020-05-22] MEDS: AMLODIPINE 5 MG TABLET PO SCH (10:37)
[2020-05-22 16:59] VITALS: BP 168/98
[2020-05-22 19:51] VITALS: BP 128/90
[2020-05-22] MEDS: INSULIN GLARGINE 100 UNITS/ML, PEN SQ-INSULIN SCH (20:33)
[2020-05-23 00:57] VITALS: BP 120/83
[2020-05-23] MEDS: HEPARIN 5,000 UNITS/ML, 1ML SQ SCH ×3 (05:30→20:32)
[2020-05-23] MEDS: METOPROLOL TARTRATE 50 MG TAB PO SCH ×2 (06:05→17:18)
[2020-05-23 06:19] LABS: BASOPHILS % (AUTO) 1 % (0-1); EOSINOPHILS % (AUTO) 3 % (1-7); LYMPHOCYTES % (AUTO) 18 % (22-44); MEAN CORPUSCULAR HEMOGLOBIN 22.6 pg (27.0-34.8); MEAN PLATELET VOLUME 7.8 fL (7.4-10.4); MONOCYTES % (AUTO) 12 % (2-9); NEUTROPHILS % (AUTO) 67 % (42-75); PLATELET COUNT 325 x10^3/uL (130-400); RED BLOOD COUNT 6.65 x10^6/uL (3.82-5.3); RED CELL DISTRIBUTION WIDTH 18.3 % (9.6-15.2)
[2020-05-23 06:31] LABS: ANION GAP 5 mmol/L (5-15); CALCIUM 8.8 mg/dL (8.5-10.1); CHLORIDE 101 mmol/L (98-107)
[2020-05-23 06:33] LABS: CREATININE 1.05 mg/dL (0.55-1.02)
[2020-05-23] MEDS: DIPHENHYDRAMINE 50 MG/ML, 1ML IVPush PRN ×3 (06:41→20:29)
[2020-05-23 06:44] LABS: MD NO
[2020-05-23 07:53] VITALS: BP 146/102
[2020-05-23] MEDS: INSULIN LISPRO 100 UNITS/ML, PEN SQ-INSULIN SCH ×4 (08:15→20:31)
[2020-05-23] MEDS: IRON SUCROSE COMPLEX 100MG/5ML IV SCH (08:15)
[2020-05-23] MEDS: AMLODIPINE 5 MG TABLET PO SCH (08:15)
[2020-05-23] MEDS: ASPIRIN 81 MG TABLET EC PO SCH (08:15)
[2020-05-23] MEDS: FUROSEMIDE 40 MG/4 ML IV SCH ×2 (08:15→17:18)
[2020-05-23] MEDS: POTASSIUM CHLORIDE 20 MEQ TAB.ER.PRT PO SCH (08:15)
[2020-05-23] MEDS: LISINOPRIL 40 MG TABLET PO SCH (08:15)
[2020-05-23] MEDS: SODIUM CHLORIDE FLUSH 10ML SYR IVF SCH ×2 (08:16→20:29)
[2020-05-23] MEDS: SENNA/DOCUSATE TABLET PO SCH (08:16)
[2020-05-23 13:39] VITALS: BP 126/92
[2020-05-23 17:18] VITALS: BP 168/127
[2020-05-23 19:32] VITALS: BP 153/106
[2020-05-23] MEDS: INSULIN GLARGINE 100 UNITS/ML, PEN SQ-INSULIN SCH (20:30)
[2020-05-23] MEDS ORDERED: hydrALAzine 20 MG/ML, 1ML IV PRN (21:00)
[2020-05-24 01:03] VITALS: BP 125/87
[2020-05-24] MEDS: HEPARIN 5,000 UNITS/ML, 1ML SQ SCH ×3 (05:39→20:52)
[2020-05-24] MEDS: METOPROLOL TARTRATE 50 MG TAB PO SCH ×2 (06:08→18:03)
[2020-05-24] MEDS: DIPHENHYDRAMINE 50 MG/ML, 1ML IVPush PRN ×3 (06:15→21:50)
[2020-05-24 07:25] VITALS: BP 132/90
[2020-05-24 07:49] LABS: BASOPHILS % (AUTO) 1 % (0-1); EOSINOPHILS % (AUTO) 3 % (1-7); LYMPHOCYTES % (AUTO) 20 % (22-44); MEAN CORPUSCULAR HEMOGLOBIN 22.9 pg (27.0-34.8); MEAN CORPUSCULAR HGB CONC 31.8 g/dL (32.4-35.8); MEAN PLATELET VOLUME 8.1 fL (7.4-10.4); MONOCYTES % (AUTO) 12 % (2-9); NEUTROPHILS % (AUTO) 64 % (42-75); PLATELET COUNT 350 x10^3/uL (130-400); RED BLOOD COUNT 6.65 x10^6/uL (3.82-5.3); RED CELL DISTRIBUTION WIDTH 18.2 % (9.6-15.2)
[2020-05-24 08:00] LABS: MD SCAN
[2020-05-24 08:02] LABS: ALBUMIN 3.2 g/dL (3.4-5.0); ANION GAP 11 mmol/L (5-15); CALCIUM 8.9 mg/dL (8.5-10.1); CHLORIDE 99 mmol/L (98-107)
[2020-05-24 08:06] LABS: ALANINE AMINOTRANSFERASE 31 U/L (12-78); ALKALINE PHOSPHATASE 71 U/L (45-117); CREATININE 0.99 mg/dL (0.55-1.02)
[2020-05-24] MEDS: FUROSEMIDE 40 MG/4 ML IV SCH ×2 (08:52→18:03)
[2020-05-24] MEDS: IRON SUCROSE COMPLEX 100MG/5ML IV SCH (08:52)
[2020-05-24] MEDS: INSULIN LISPRO 100 UNITS/ML, PEN SQ-INSULIN SCH ×4 (08:53→20:51)
[2020-05-24] MEDS: GLIMEPIRIDE 1 MG TABLET PO SCH (08:54)
[2020-05-24] MEDS: AMLODIPINE 5 MG TABLET PO SCH (08:54)
[2020-05-24] MEDS: POTASSIUM CHLORIDE 20 MEQ TAB.ER.PRT PO SCH (08:54)
[2020-05-24] MEDS: LISINOPRIL 40 MG TABLET PO SCH (08:54)
[2020-05-24] MEDS: ASPIRIN 81 MG TABLET EC PO SCH (08:54)
[2020-05-24] MEDS: SENNA/DOCUSATE TABLET PO SCH (08:54)
[2020-05-24] MEDS: SODIUM CHLORIDE FLUSH 10ML SYR IVF SCH ×2 (08:55→20:52)
[2020-05-24 13:17] VITALS: BP 142/83
[2020-05-24 19:42] VITALS: BP 138/72
[2020-05-24] MEDS: INSULIN GLARGINE 100 UNITS/ML, PEN SQ-INSULIN SCH (20:52)
[2020-05-25 00:49] VITALS: BP 123/88
[2020-05-25] MEDS: HEPARIN 5,000 UNITS/ML, 1ML SQ SCH ×3 (04:25→20:27)
[2020-05-25] MEDS: DIPHENHYDRAMINE 50 MG/ML, 1ML IVPush PRN ×4 (05:01→23:15)
[2020-05-25] MEDS: METOPROLOL TARTRATE 50 MG TAB PO SCH ×2 (05:01→17:00)
[2020-05-25 05:05] VITALS: BP 125/85
[2020-05-25 05:20] LABS: HCT (SEDRATE) 49.7 % (34.6-47.8)
[2020-05-25 05:24] LABS: CHLORIDE 99 mmol/L (98-107)
[2020-05-25 05:27] LABS: BASOPHILS % (AUTO) 0 % (0-1); EOSINOPHILS % (AUTO) 4 % (1-7); LYMPHOCYTES % (AUTO) 17 % (22-44); MD NO; MEAN CORPUSCULAR HEMOGLOBIN 22.9 pg (27.0-34.8); MEAN CORPUSCULAR HGB CONC 31.7 g/dL (32.4-35.8); MEAN PLATELET VOLUME 7.9 fL (7.4-10.4); MONOCYTES % (AUTO) 12 % (2-9); NEUTROPHILS % (AUTO) 67 % (42-75); PLATELET COUNT 344 x10^3/uL (130-400); RED BLOOD COUNT 6.77 x10^6/uL (3.82-5.3); RED CELL DISTRIBUTION WIDTH 18.1 % (9.6-15.2)
[2020-05-25 05:38] LABS: ALANINE AMINOTRANSFERASE 29 U/L (12-78); ALBUMIN 3.4 g/dL (3.4-5.0); ALKALINE PHOSPHATASE 74 U/L (45-117); ANION GAP 8 mmol/L (5-15); BILIRUBIN,TOTAL 1.1 mg/dL (0.2-1.0); C-REACTIVE PROTEIN, QUANT 0.29 mg/dL (0.02-0.49); CALCIUM 9.1 mg/dL (8.5-10.1); CREATININE 0.96 mg/dL (0.55-1.02); TOTAL PROTEIN 7.5 g/dL (6.4-8.2)
[2020-05-25 08:28] VITALS: BP 106/66
[2020-05-25] MEDS: INSULIN LISPRO 100 UNITS/ML, PEN SQ-INSULIN SCH ×4 (08:52→20:27)
[2020-05-25 09:05] VITALS: BP 149/85
[2020-05-25] MEDS: SENNA/DOCUSATE TABLET PO SCH (09:06)
[2020-05-25] MEDS: ASPIRIN 81 MG TABLET EC PO SCH (09:06)
[2020-05-25] MEDS: LISINOPRIL 40 MG TABLET PO SCH (09:06)
[2020-05-25] MEDS: AMLODIPINE 5 MG TABLET PO SCH (09:07)
[2020-05-25] MEDS: POTASSIUM CHLORIDE 20 MEQ TAB.ER.PRT PO SCH (09:07)
[2020-05-25] MEDS: GLIMEPIRIDE 1 MG TABLET PO SCH (09:07)
[2020-05-25] MEDS: FUROSEMIDE 40 MG/4 ML IV SCH ×2 (09:08→16:54)
[2020-05-25] MEDS: IRON SUCROSE COMPLEX 100MG/5ML IV SCH (09:08)
[2020-05-25] MEDS: SODIUM CHLORIDE FLUSH 10ML SYR IVF SCH ×2 (09:09→20:27)
[2020-05-25 12:39] VITALS: BP 103/71
[2020-05-25 19:06] VITALS: BP 114/73
[2020-05-25] MEDS: INSULIN GLARGINE 100 UNITS/ML, PEN SQ-INSULIN SCH (20:26)
[2020-05-26 00:58] VITALS: BP 106/67
[2020-05-26] MEDS: HEPARIN 5,000 UNITS/ML, 1ML SQ SCH ×3 (05:11→21:30)
[2020-05-26] MEDS: DIPHENHYDRAMINE 50 MG/ML, 1ML IVPush PRN ×3 (06:14→23:45)
[2020-05-26 06:15] VITALS: BP 130/87
[2020-05-26] MEDS: METOPROLOL TARTRATE 50 MG TAB PO SCH ×2 (06:15→16:51)
[2020-05-26 06:24] LABS: MEAN CORPUSCULAR HEMOGLOBIN 22.7 pg (27.0-34.8); MEAN CORPUSCULAR HGB CONC 31.5 g/dL (32.4-35.8); MEAN PLATELET VOLUME 7.8 fL (7.4-10.4); PLATELET COUNT 312 x10^3/uL (130-400); RED BLOOD COUNT 6.55 x10^6/uL (3.82-5.3); RED CELL DISTRIBUTION WIDTH 17.4 % (9.6-15.2)
[2020-05-26 06:35] LABS: ALBUMIN 3.3 g/dL (3.4-5.0); CALCIUM 9.7 mg/dL (8.5-10.1); CHLORIDE 100 mmol/L (98-107)
[2020-05-26 06:42] LABS: ALANINE AMINOTRANSFERASE 25 U/L (12-78); ALKALINE PHOSPHATASE 72 U/L (45-117); CREATININE 0.98 mg/dL (0.55-1.02); TOTAL PROTEIN 7.3 g/dL (6.4-8.2); TROPONIN I < 0.015 ng/mL (0.000-0.045)
[2020-05-26 06:49] LABS: ANION GAP 4 mmol/L (5-15)
[2020-05-26] MEDS: INSULIN LISPRO 100 UNITS/ML, PEN SQ-INSULIN SCH ×4 (07:00→21:00)
[2020-05-26 07:08] LABS: MD YES
[2020-05-26 07:10] LABS: ANISOCYTOSIS 1+; BAND#(MANUAL) 0.12 x10^3/uL; BANDS%(MANUAL) 1 % (0-7); EOS#(MANUAL) 0.82 x10^3/uL (0.0-0.4); EOS% (MANUAL) 7 % (1-7); LYMPH#(MANUAL) 2.57 x10^3/uL (1-3.4); LYMPHS% (MANUAL) 22 % (22-44); MICROCYTOSIS 1+; MONOS#(MANUAL) 0.47 x10^3/uL (0.3-2.7); MONOS% (MANUAL) 4 % (2-9); REACTIVE LYMPHS # (MANUAL) 0.12 x10^3/uL (0-0); REACTIVE LYMPHS % (MANUAL) 1 % (0-0); SEG#(MANUAL) 7.61 x10^3/uL (1.8-6.8); SEGS% (MANUAL) 65 % (42-75)
[2020-05-26 07:11] LABS: OVALOCYTES 1+; POLYCHROMASIA 1+; TEAR DROPS 1+
[2020-05-26 07:12] LABS: HYPOCHROMIA 1+; TARGET CELLS 1+
[2020-05-26 07:16] LABS: <PLATELET ESTIMATE> ADEQUATE; <PLT MORPHOLOGY> NORMAL PLT MORPH
[2020-05-26] MEDS: ASPIRIN 81 MG TABLET EC PO SCH (07:28)
[2020-05-26] MEDS: LISINOPRIL 40 MG TABLET PO SCH (07:28)
[2020-05-26] MEDS: FUROSEMIDE 40 MG/4 ML IV SCH (07:28)
[2020-05-26] MEDS: POTASSIUM CHLORIDE 20 MEQ TAB.ER.PRT PO SCH (07:29)
[2020-05-26] MEDS: GLIMEPIRIDE 1 MG TABLET PO SCH (07:29)
[2020-05-26] MEDS: AMLODIPINE 5 MG TABLET PO SCH (07:29)
[2020-05-26] MEDS: SENNA/DOCUSATE TABLET PO SCH (07:29)
[2020-05-26] MEDS: SODIUM CHLORIDE FLUSH 10ML SYR IVF SCH ×2 (07:29→21:00)
[2020-05-26 15:40] VITALS: BP 118/83
[2020-05-26] MEDS ORDERED: FUROSEMIDE 40 MG/4 ML IV SCH (17:00)
[2020-05-26] MEDS ORDERED: FUROSEMIDE 40 MG TABLET PO ONE (17:30)
[2020-05-26 19:45] VITALS: BP 108/72
[2020-05-26] MEDS: INSULIN GLARGINE 100 UNITS/ML, PEN SQ-INSULIN SCH (23:45)
[2020-05-27 03:50] VITALS: BP 122/86
[2020-05-27] MEDS: METOPROLOL TARTRATE 50 MG TAB PO SCH ×2 (05:25→17:05)
[2020-05-27] MEDS: HEPARIN 5,000 UNITS/ML, 1ML SQ SCH ×2 (05:30→13:30)
[2020-05-27 07:10] VITALS: BP 92/64
[2020-05-27] MEDS: INSULIN LISPRO 100 UNITS/ML, PEN SQ-INSULIN SCH ×3 (07:50→17:05)
[2020-05-27] MEDS: DIPHENHYDRAMINE 50 MG/ML, 1ML IVPush PRN ×2 (07:51→14:22)
[2020-05-27] MEDS: FUROSEMIDE 40 MG TABLET PO SCH ×2 (07:52→17:05)
[2020-05-27] MEDS: AMLODIPINE 5 MG TABLET PO SCH (07:52)
[2020-05-27] MEDS: ASPIRIN 81 MG TABLET EC PO SCH (07:52)
[2020-05-27] MEDS: GLIMEPIRIDE 1 MG TABLET PO SCH (07:52)
[2020-05-27] MEDS: SENNA/DOCUSATE TABLET PO SCH (07:52)
[2020-05-27] MEDS: LISINOPRIL 40 MG TABLET PO SCH (07:53)
[2020-05-27] MEDS: POTASSIUM CHLORIDE 20 MEQ TAB.ER.PRT PO SCH (08:00)
[2020-05-27] MEDS: SODIUM CHLORIDE FLUSH 10ML SYR IVF SCH (08:44)
[2020-05-27] MEDS ORDERED: FERROUS SULFATE 325 MG TABLET PO SCH (09:00)
[2020-05-27] MEDS ORDERED: LISI40TA9 PO (11:49)
[2020-05-27] MEDS ORDERED: GLIM1TAB PO (11:49)
[2020-05-27] MEDS ORDERED: FERR-51 PO (11:49)
[2020-05-27] MEDS ORDERED: FURO40TA6 PO (11:49)
[2020-05-27] MEDS ORDERED: METO50TA82 PO (11:49)
[2020-05-27 12:32] VITALS: BP 118/65
== END 2020-05-27 17:57 | disposition home or self-care (01) | DRG 291 ==
LOC: ED 20:55 → EDIP 21:04 → 4WST 22:12
PROVIDERS: ADMIT Family Medicine; ATTEND Family Medicine
DX: I13.0 Hypertensive heart and chronic kidney disease with heart failure and stage 1 through stage 4 chronic kidney disease, or unspecified chronic kidney disease (principal); I50.33 Acute on chronic diastolic (congestive) heart failure; J96.21 Acute and chronic respiratory failure with hypoxia; E66.2 Morbid (severe) obesity with alveolar hypoventilation; Z68.43 Body mass index [BMI] 50.0-59.9, adult; E11.22 Type 2 diabetes mellitus with diabetic chronic kidney disease; I42.8 Other cardiomyopathies; E11.65 Type 2 diabetes mellitus with hyperglycemia; F32.9 Major depressive disorder, single episode, unspecified; I25.10 Atherosclerotic heart disease of native coronary artery without angina pectoris; I27.20 Pulmonary hypertension, unspecified; N18.30 Chronic kidney disease, stage 3 unspecified; G43.909 Migraine, unspecified, not intractable, without status migrainosus; M79.10 Myalgia, unspecified site; R00.0 Tachycardia, unspecified; Z59.0 Homelessness; I25.2 Old myocardial infarction; Z76.5 Malingerer [conscious simulation]; Z79.4 Long term (current) use of insulin; Z82.3 Family history of stroke; Z86.73 Personal history of transient ischemic attack (TIA), and cerebral infarction without residual deficits; Z87.891 Personal history of nicotine dependence; Z91.14 Patient's other noncompliance with medication regimen; Z90.49 Acquired absence of other specified parts of digestive tract; Z88.0 Allergy status to penicillin; Z88.1 Allergy status to other antibiotic agents; Z91.041 Radiographic dye allergy status
CPT/HCPCS: 36415; 84145; 96374; 96375; 99285; C8929; 71045; 71275; 80048; 80053; 82728; 82962; 83036; 83540; 83550; 83605; 83615; 84484; 84703; 85025; 85049; 85379; 85384; 85610; 85651; 85730; 86140; 87040; 93005; G0378; J1756; J1940; Q9957; Q9967; J0360; J1200; J1815; J2270; J2930